=== PATIENT | male | born 1950 | race Caucasian/White ===

== ENCOUNTER → 2017-03-22 | Outpatient (REF) | payer OTHER ==
[2017-03-23 12:15] LABS: ANION GAP 7 MEQ/L (8-16); BLOOD UREA NITROGEN 21 MG/DL (7-18); CALCIUM LEVEL 8.8 MG/DL (8.8-10.2); CARBON DIOXIDE LEVEL 28 MEQ/L (21-32); CHLORIDE LEVEL 107 MEQ/L (98-107); CREATININE FOR GFR 1.18 MG/DL (0.70-1.30); GLOMERULAR FILTRATION RATE > 60.0 (>49); GLUCOSE, FASTING 88 MG/DL (80-110); POTASSIUM SERUM 4.3 MEQ/L (3.5-5.1); SODIUM LEVEL 142 MEQ/L (136-145)
== END ==
LOC: M SFHCCLAY 15:19
PROVIDERS: ATTEND Family Medicine
DX: I10 Essential (primary) hypertension (principal)
CPT/HCPCS: 80048; G0463

== ENCOUNTER → 2017-09-03 | Outpatient (REF) | payer OTHER ==
[2017-09-04 11:40] LABS: BASO # 0.1 10^3/uL (0.0-0.2); BASO % 0.7 % (0.0-1.0); EOS # 0.2 10^3/uL (0.0-0.50); EOS % 1.6 % (0.0-3.0); IMMATURE GRANULOCYTE % 0.5 % (0-3.0); LYMPH # 3.3 10^3/uL (1.5-4.5); LYMPH % 31.1 % (24.0-44.0); MEAN CORPUSCULAR HGB CONC 33.3 g/dl (32.0-36.5); MEAN CORPUSCULAR VOLUME 89.9 fl (80.0-96.0); NEUTROPHILS # 6.1 10^3/uL (1.8-7.7); NEUTROPHILS % 57.1 % (36.0-66.0); PLATELET COUNT, AUTOMATED 360 10^3/uL (150-450); RED BLOOD COUNT 5.34 10^6/uL (4.30-6.10); RED CELL DISTRIBUTION WIDTH 13.3 % (11.5-14.5); WHITE BLOOD COUNT 10.7 10^3/uL (4.0-10.0)
[2017-09-04 12:02] LABS: TOTAL T3 84.3 NG/DL (60.0-181.0)
[2017-09-04 12:08] LABS: ALBUMIN 4.1 GM/DL (3.2-5.2); ALBUMIN/GLOBULIN RATIO 1.37 (1.00-1.93); ALKALINE PHOSPHATASE 99 U/L (45-117); ALT/SGPT 38 U/L (12-78); ANION GAP 6 MEQ/L (8-16); AST/SGOT 18 U/L (7-37); BILIRUBIN,TOTAL 0.4 MG/DL (0.2-1.0); BLOOD UREA NITROGEN 28 MG/DL (7-18); CARBON DIOXIDE LEVEL 32 MEQ/L (21-32); CHLORIDE LEVEL 103 MEQ/L (98-107); CREATININE FOR GFR 1.21 MG/DL (0.70-1.30); GLOMERULAR FILTRATION RATE > 60.0 (>49); GLUCOSE, FASTING 87 MG/DL (70-100); POTASSIUM SERUM 4.5 MEQ/L (3.5-5.1); SODIUM LEVEL 141 MEQ/L (136-145); THYROXINE (T4) 8.4 UG/DL (4.5-12.0); TOTAL PROTEIN 7.1 GM/DL (6.4-8.2)
== END ==
LOC: M SFHCCLAY 15:44
DX: R00.1 Bradycardia, unspecified (principal); R94.31 Abnormal electrocardiogram [ECG] [EKG]; I10 Essential (primary) hypertension; I73.9 Peripheral vascular disease, unspecified
CPT/HCPCS: 84443

== ENCOUNTER → 2018-04-26 | Outpatient (CLI) | payer OTHER | LOC: M RAD 07:47 | DX: I10 Essential (primary) hypertension (principal); N13.30 Unspecified hydronephrosis; I70.1 Atherosclerosis of renal artery; N40.0 Benign prostatic hyperplasia without lower urinary tract symptoms | CPT/HCPCS: 76775 ==

== ENCOUNTER → 2018-06-04 | Outpatient (REF) | payer OTHER ==
[2018-06-05 11:48] LABS: ALBUMIN 3.9 GM/DL (3.2-5.2); BILIRUBIN,TOTAL 0.4 MG/DL (0.2-1.0); CALCIUM LEVEL 9.3 MG/DL (8.8-10.2); CREATININE FOR GFR 1.27 MG/DL (0.70-1.30); POTASSIUM SERUM 4.9 MEQ/L (3.5-5.1); TOTAL PROTEIN 7.1 GM/DL (6.4-8.2)
== END ==
LOC: M SFHCCLAY 15:48
PROVIDERS: ATTEND Family Medicine
DX: I10 Essential (primary) hypertension (principal)
CPT/HCPCS: 80053; G0463

== ENCOUNTER → 2018-07-02 | Outpatient (REF) | payer OTHER ==
[2018-07-02 16:38] LABS: BASO # 0.1 10^3/uL (0.0-0.2); BASO % 0.7 % (0.0-1.0); EOS # 0.1 10^3/uL (0.0-0.50); EOS % 1.3 % (0.0-3.0); HEMATOCRIT 45.8 % (42.0-52.0); HEMOGLOBIN 15.2 g/dl (13.5-17.5); LYMPH # 3.5 10^3/uL (1.5-4.5); MEAN CORPUSCULAR HEMOGLOBIN 30.2 pg (27.0-33.0); MEAN CORPUSCULAR HGB CONC 33.2 g/dl (32.0-36.5); MEAN CORPUSCULAR VOLUME 91.1 fl (80.0-96.0); MONO # 1.1 10^3/uL (0.0-0.8); MONO % 9.9 % (0.0-5.0); NEUTROPHILS # 5.9 10^3/uL (1.8-7.7); NEUTROPHILS % 54.8 % (36.0-66.0); PLATELET COUNT, AUTOMATED 340 10^3/uL (150-450); RED BLOOD COUNT 5.03 10^6/uL (4.30-6.10); WHITE BLOOD COUNT 10.7 10^3/uL (4.0-10.0)
[2018-07-02 16:43] LABS: INR 0.93; PROTHROMBIN TIME 12.6 SECONDS (12.1-14.4)
[2018-07-02 16:44] LABS: PARTIAL THROMBOPLASTIN TIME 30.4 SECONDS (25.4-37.6)
[2018-07-02 16:54] LABS: BLOOD UREA NITROGEN 18 MG/DL (7-18); CALCIUM LEVEL 8.6 MG/DL (8.8-10.2); CARBON DIOXIDE LEVEL 28 MEQ/L (21-32); CHLORIDE LEVEL 104 MEQ/L (98-107); CREATININE FOR GFR 1.21 MG/DL (0.70-1.30); GLOMERULAR FILTRATION RATE > 60.0 (>49); GLUCOSE, FASTING 83 MG/DL (70-100); POTASSIUM SERUM 5.1 MEQ/L (3.5-5.1); SODIUM LEVEL 138 MEQ/L (136-145)
== END ==
LOC: M LABDRAWC 16:20
PROVIDERS: ATTEND Surgery Vascular Surgery
DX: Z01.818 Encounter for other preprocedural examination (principal); D69.8 Other specified hemorrhagic conditions; I73.9 Peripheral vascular disease, unspecified

== ENCOUNTER → 2019-05-06 | Outpatient (REF) | payer MEDICARE ==
[2019-05-07 11:24] LABS: BASO # 0.1 10^3/uL (0.0-0.2); BASO % 0.8 % (0.0-1.0); EOS # 0.2 10^3/uL (0.0-0.5); EOS % 2.7 % (0.0-3.0); HEMATOCRIT 46.9 % (42.0-52.0); HEMOGLOBIN 15.6 g/dl (13.5-17.5); LYMPH # 3.2 10^3/uL (1.5-5.0); LYMPH % 35.3 % (24.0-44.0); MEAN CORPUSCULAR HEMOGLOBIN 30.6 pg (27.0-33.0); MEAN CORPUSCULAR HGB CONC 33.3 g/dl (32.0-36.5); MONO # 0.9 10^3/uL (0.0-0.8); MONO % 10.1 % (0.0-5.0); NEUTROPHILS # 4.6 10^3/uL (1.5-8.5); NEUTROPHILS % 50.9 % (36.0-66.0); PLATELET COUNT, AUTOMATED 337 10^3/uL (150-450)
[2019-05-07 11:31] LABS: ALBUMIN 3.9 GM/DL (3.2-5.2); ALT/SGPT 51 U/L (12-78); BILIRUBIN,TOTAL 0.4 MG/DL (0.2-1.0); BLOOD UREA NITROGEN 20 MG/DL (7-18); CALCIUM LEVEL 9.6 MG/DL (8.8-10.2); CARBON DIOXIDE LEVEL 30 MEQ/L (21-32); CHLORIDE LEVEL 105 MEQ/L (98-107); CREATININE FOR GFR 1.13 MG/DL (0.70-1.30); GLOMERULAR FILTRATION RATE > 60.0 (>49); GLUCOSE, FASTING 99 MG/DL (70-100); POTASSIUM SERUM 4.9 MEQ/L (3.5-5.1); SODIUM LEVEL 142 MEQ/L (136-145); TOTAL PROTEIN 6.7 GM/DL (6.4-8.2)
[2019-05-10 00:16] LABS: Lyme Disease IgG Ab 18 kDa Ban Absent (.); Lyme Disease IgG Ab 23 kDa Ban Absent (.); Lyme Disease IgG Ab 28 kDa Ban Absent (.); Lyme Disease IgG Ab 30 kDa Ban Absent (.); Lyme Disease IgG Ab 39 kDa Ban Absent (.); Lyme Disease IgG Ab 41 kDa Ban Absent (.); Lyme Disease IgG Ab 45 kDa Ban Absent (.); Lyme Disease IgG Ab 58 kDa Ban Absent (.); Lyme Disease IgG Ab 66 kDa Ban Absent (.); Lyme Disease IgG Ab 93 kDa Ban Absent (.); Lyme Disease IgG West Blot Int Negative (.); Lyme Disease IgG/IgM Antibodie <0.91 ISR (0.00-0.90); Lyme Disease IgM Ab 23 kDa Ban Absent (.); Lyme Disease IgM Ab 39 kDa Ban Absent (.); Lyme Disease IgM Ab 41 kDa Ban Absent (.); Lyme Disease IgM Ab Quantitati 1.16 index (0.00-0.79); Lyme Disease IgM West Blot Int Negative (.)
== END ==
LOC: M SFHCCLAY 14:52
PROVIDERS: ATTEND Family Medicine
DX: I10 Essential (primary) hypertension (principal); W57.XXXD Bitten or stung by nonvenomous insect and other nonvenomous arthropods, subsequent encounter; Z23 Encounter for immunization
CPT/HCPCS: 80053; 85025; 86617; 90682; G0008; G0463

== ENCOUNTER → 2021-03-07 | Outpatient (CLI) | payer MEDICARE ==
--- NOTE | 2021-03-07 12:37 | REP ---
INDICATION: RT SHOULDER PAIN COMPARISON: None. TECHNIQUE: Three views right shoulder. 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 There is also moderate spurring of the inferior aspect of the humeral head. A 2 cm calcific body projects just inferior to the glenohumeral joint. There appear to be mild tendinous calcifications along the superolateral humeral head. IMPRESSION: No fracture or dislocation. Degenerative changes as discussed above. A 2 cm calcific body projects just inferior to the glenohumeral joint and there are mild tendinous calcifications supero laterally. <Electronically signed by Alejandro Rasheed > 03/07/21 7833
== END ==
LOC: M CLY 11:39
PROVIDERS: ATTEND Family Medicine
DX: M19.011 Primary osteoarthritis, right shoulder (principal); M25.511 Pain in right shoulder; I10 Essential (primary) hypertension; F43.23 Adjustment disorder with mixed anxiety and depressed mood
CPT/HCPCS: 73030; G0463

== ENCOUNTER → 2023-08-21 | Outpatient (REF) | payer MEDICARE ==
[2023-08-21 17:29] LABS: BASO # 0.1 10^3/uL (0.0-0.2); BASO % 0.9 % (0.0-1.0); EOS # 0.2 10^3/uL (0.0-0.5); EOS % 2.2 % (0.0-3.0); HEMATOCRIT 46.3 % (42.0-52.0); HEMOGLOBIN 15.1 g/dl (13.5-17.5); LYMPH # 2.3 10^3/uL (1.5-5.0); LYMPH % 26.7 % (24.0-44.0); MEAN CORPUSCULAR HEMOGLOBIN 29.5 pg (27.0-33.0); MEAN CORPUSCULAR HGB CONC 32.6 g/dl (32.0-36.5); MEAN CORPUSCULAR VOLUME 90.6 fl (80.0-96.0); MONO # 0.9 10^3/uL (0.0-0.8); MONO % 10.1 % (2.0-8.0); NEUTROPHILS # 5.2 10^3/uL (1.5-8.5); NEUTROPHILS % 59.4 % (36.0-66.0); PLATELET COUNT, AUTOMATED 396 10^3/uL (150-450); RED BLOOD COUNT 5.11 10^6/uL (4.30-6.10); WHITE BLOOD COUNT 8.8 10^3/uL (4.0-10.0)
[2023-08-21 17:54] LABS: ALBUMIN 3.4 G/DL (3.2-5.2); ALKALINE PHOSPHATASE 126 U/L (46-116); ALT/SGPT 33 U/L (7.0-40); AST/SGOT 21 U/L (<34); BILIRUBIN,TOTAL 0.5 MG/DL (0.3-1.2); BLOOD UREA NITROGEN 19 MG/DL (9-23); CALCIUM LEVEL 8.2 MG/DL (8.3-10.6); CARBON DIOXIDE LEVEL 29 MMOL/L (20-31); CHLORIDE LEVEL 103 MMOL/L (98-107); CREATININE FOR GFR 0.98 MG/DL (0.70-1.30); GLOMERULAR FILTRATION RATE > 60.0 (>42); GLUCOSE, FASTING 93 MG/DL (74-106); POTASSIUM SERUM 5.1 MMOL/L (3.5-5.1); SODIUM LEVEL 140 MMOL/L (136-145); TOTAL PROTEIN 6.4 G/DL (5.7-8.2)
[2023-08-21 18:02] LABS: THYROID STIMULATING HORMONE 2.029 uIU/ML (0.55-4.78)
[2023-08-21 18:03] LABS: FREE T4 0.95 NG/DL (0.89-1.76)
== END ==
LOC: M SFHCCLAY 12:10
PROVIDERS: ATTEND Family Medicine
DX: R22.0 Localized swelling, mass and lump, head (principal); I10 Essential (primary) hypertension

== ENCOUNTER → 2023-09-18 | Outpatient (CLI) | payer MEDICARE ==
[~2023-09-18] MED LIST: ISOVUE-370 76% 100ML VIAL As Ordered ONE
== END ==
LOC: M RAD 10:35
PROVIDERS: ATTEND Orthopaedic Surgery
DX: M25.511 Pain in right shoulder (principal); I82.C11 Acute embolism and thrombosis of right internal jugular vein
CPT/HCPCS: 93971; Q9967

== ENCOUNTER → 2023-09-18 | Outpatient (CLI) | payer MEDICARE | LOC: M RAD 10:45 | PROVIDERS: ATTEND Family Medicine | DX: R06.02 Shortness of breath (principal); I10 Essential (primary) hypertension; R59.0 Localized enlarged lymph nodes; D49.1 Neoplasm of unspecified behavior of respiratory system; J90 Pleural effusion, not elsewhere classified; M25.511 Pain in right shoulder; I82.C11 Acute embolism and thrombosis of right internal jugular vein | CPT/HCPCS: 71260; 93971; Q9967 ==

== ENCOUNTER → 2023-09-25 | Outpatient (CLI) | payer MEDICARE ==
[~2023-09-25] MED LIST changes: +ASPI81TA26 PO; +CLONI1TA PO; +ENOX100I3 SC; +ETOD-235 PO; +FURO40TA2 PO; -ISOVUE-370 76% 100ML VIAL As Ordered ONE; +MELO15TA28 PO; +MULT-40 PO; +SILD100T PO; +WARF-23 PO
== END ==
LOC: M IRPRO 10:47
PROVIDERS: ATTEND Internal Medicine Pulmonary Disease
DX: R91.1 Solitary pulmonary nodule (principal); Z53.9 Procedure and treatment not carried out, unspecified reason

== ENCOUNTER → 2023-09-26 | Outpatient (CLI) | payer MEDICARE ==
[~2023-09-26] MED LIST changes: +HOME MED LIST COMPLETE! XX SCH; +LIDOCAINE 1% MDV 20ML VIAL As Ordered ONE
[2023-09-26 08:40] VITALS: TEMP 97.2
[2023-09-26 09:24] LABS: PLATELET COUNT, AUTOMATED 492 10^3/uL (150-450)
[2023-09-26 09:35] LABS: INR 0.97; PARTIAL THROMBOPLASTIN TIME 32.2 SECONDS (24.8-34.2); PROTHROMBIN TIME 12.6 SECONDS (12.5-14.5)
[2023-09-26 11:30] VITALS: BP 180/70
[2023-09-26 12:00] VITALS: O2SAT 93
== END ==
LOC: M IRPRO 08:35
PROVIDERS: ATTEND Internal Medicine Pulmonary Disease
DX: R91.8 Other nonspecific abnormal finding of lung field (principal); C85.10 Unspecified B-cell lymphoma, unspecified site; Z79.01 Long term (current) use of anticoagulants

== ENCOUNTER 2023-10-05 18:14 | Emergency (ER) | payer MEDICARE ==
[~2023-10-05] VITALS: Ht 177.8 cm; Wt 90.2 kg
[~2023-10-05 18:14] MED LIST changes: -HOME MED LIST COMPLETE! XX SCH; -LIDOCAINE 1% MDV 20ML VIAL As Ordered ONE
[2023-10-05] MEDS: NS 1,000 ML IV ONE (19:20)
[2023-10-05 19:30] LABS: BASO # 0.1 10^3/uL (0.0-0.2); BASO % 0.8 % (0.0-1.0); EOS # 0.2 10^3/uL (0.0-0.5); EOS % 2.3 % (0.0-3.0); HEMATOCRIT 41.8 % (42.0-52.0); HEMOGLOBIN 13.7 g/dl (13.5-17.5); LYMPH # 1.9 10^3/uL (1.5-5.0); LYMPH % 23.1 % (24.0-44.0); MEAN CORPUSCULAR HEMOGLOBIN 29.2 pg (27.0-33.0); MEAN CORPUSCULAR HGB CONC 32.8 g/dl (32.0-36.5); MEAN CORPUSCULAR VOLUME 89.1 fl (80.0-96.0); MONO # 0.9 10^3/uL (0.0-0.8); MONO % 10.4 % (2.0-8.0); NEUTROPHILS # 5.3 10^3/uL (1.5-8.5); NEUTROPHILS % 62.8 % (36.0-66.0); PLATELET COUNT, AUTOMATED 473 10^3/uL (150-450); RED BLOOD COUNT 4.69 10^6/uL (4.30-6.10); WHITE BLOOD COUNT 8.4 10^3/uL (4.0-10.0)
[2023-10-05] MEDS: PANTOPRAZOLE 40MG VIAL IV ONE (19:34)
[2023-10-05] MEDS: MAALOX 30 ML SUSP *UDC PO ONE (19:34)
[2023-10-05 19:36] VITALS: BP 154/68
[2023-10-05] MEDS: NITROGLYCERIN 2% OINT 1 GM *U/D* PKT TOP ONE (19:36)
[2023-10-05 19:41] LABS: INR 1.44
[2023-10-05 19:53] LABS: LIPASE 23 U/L (12-53)
[2023-10-05 19:56] LABS: ALBUMIN 3.2 G/DL (3.2-5.2); ALKALINE PHOSPHATASE 121 U/L (46-116); ALT/SGPT 52 U/L (7.0-40); AST/SGOT 18 U/L (<34); BILIRUBIN,DIRECT < 0.1 MG/DL (<0.4); BILIRUBIN,TOTAL 0.3 MG/DL (0.3-1.2); BLOOD UREA NITROGEN 23 MG/DL (9-23); CALCIUM LEVEL 9.1 MG/DL (8.3-10.6); CARBON DIOXIDE LEVEL 28 MMOL/L (20-31); CHLORIDE LEVEL 101 MMOL/L (98-107); CK-MB VALUE MASS 2.8 NG/ML (<3.6); CREATININE FOR GFR 0.97 MG/DL (0.70-1.30); GLOMERULAR FILTRATION RATE > 60.0 (>42); GLUCOSE, FASTING 95 MG/DL (74-106); POTASSIUM SERUM 4.7 MMOL/L (3.5-5.1); SODIUM LEVEL 135 MMOL/L (136-145); TOTAL PROTEIN 6.4 G/DL (5.7-8.2)
[2023-10-05 19:57] LABS: FREE T4 0.96 NG/DL (0.89-1.76)
[2023-10-05] MEDS ORDERED: ISOVUE-370 76% 100ML VIAL As Ordered ONE (19:57)
[2023-10-05 19:58] LABS: THYROID STIMULATING HORMONE 3.234 uIU/ML (0.55-4.78)
[2023-10-05 19:59] LABS: CPK CREATINE PHOSPHOKINASE 120 U/L (46-171); MB/CK RELATIVE INDEX 2.33 (< OR =4)
[2023-10-05 21:40] LABS: MB/CK RELATIVE INDEX 2.27 (< OR =4)
[2023-10-05 21:46] LABS: PROCALCITONIN 0.04 ng/ml
[2023-10-05] MEDS ORDERED: MULTTAB61 PO (21:49)
[2023-10-05] MEDS: MORPHINE 4 MG/ML 1ML VIAL IV ONE (21:50)
[2023-10-05] MEDS ORDERED: HOME MED LIST COMPLETE! XX SCH (21:55)
[2023-10-05 22:30] VITALS: BP 128/59; TEMP 98.2; O2SAT 91
[2023-10-05] MEDS ORDERED: OXYC1TAB23 PO (22:34)
[2023-10-08] MEDS ORDERED: ETOD-235 PO (09:22)
[2023-10-08] MEDS ORDERED: PRED50TA PO (12:44)
[2023-10-08] MEDS ORDERED: OLAN1TAB16 PO (13:09)
== END 2023-10-05 23:30 | disposition home or self-care (01) ==
LOC: M ED 18:14
DX: R07.89 Other chest pain (principal); C85.12 Unspecified B-cell lymphoma, intrathoracic lymph nodes; I10 Essential (primary) hypertension; Z95.820 Peripheral vascular angioplasty status with implants and grafts; Z86.718 Personal history of other venous thrombosis and embolism; F17.290 Nicotine dependence, other tobacco product, uncomplicated; Z79.01 Long term (current) use of anticoagulants; Z79.82 Long term (current) use of aspirin; Z79.899 Other long term (current) drug therapy
CPT/HCPCS: 71045; 71275; 80048; 80076; 82550; 82553; 83690; 83880; 84145; 84439; 84443; 84484; 85025; 85610; 86140; 93005; 93041; 94760; 96361; 96374; 96375; 99291; C9113; Q9967

== ENCOUNTER → 2023-10-08 | Outpatient (CLI) | payer MEDICARE ==
[~2023-10-08] MED LIST changes: +ALLO300T2 PO; +AMOX875T2 PO; +ELIQ5TAB PO; +HALO0.052 TOP; +HYDR-3715 PO; +KRIL1000 PO; +LIDO15SO8 PO; +MAGICMW SSP; +MEGE40SU6 PO; +MULTTAB61 PO; +OLAN1TAB16 PO; +OXYC1TAB23 PO; +PRED50TA PO
== END ==
LOC: M ONCR 08:53
PROVIDERS: ATTEND General Practice
DX: C85.12 Unspecified B-cell lymphoma, intrathoracic lymph nodes (principal); R07.9 Chest pain, unspecified; R60.0 Localized edema; R61 Generalized hyperhidrosis; Z71.2 Person consulting for explanation of examination or test findings; Z79.01 Long term (current) use of anticoagulants; Z79.82 Long term (current) use of aspirin; Z79.899 Other long term (current) drug therapy; Z80.8 Family history of malignant neoplasm of other organs or systems; Z87.891 Personal history of nicotine dependence

== ENCOUNTER → 2023-10-15 | Outpatient (CLI) | payer MEDICARE ==
[~2023-10-15] MED LIST changes: -AMOX875T2 PO; -HALO0.052 TOP; -HYDR-3715 PO; -KRIL1000 PO; -LIDO15SO8 PO; -MAGICMW SSP; -MEGE40SU6 PO
== END ==
LOC: M IRPRO 09:21
PROVIDERS: ATTEND Internal Medicine Hematology & Oncology
DX: C85.12 Unspecified B-cell lymphoma, intrathoracic lymph nodes (principal)

== ENCOUNTER → 2023-10-16 | Outpatient (CLI) | payer MEDICARE | LOC: M CARPUL 09:46 | PROVIDERS: ATTEND Internal Medicine Pulmonary Disease | DX: R91.8 Other nonspecific abnormal finding of lung field (principal) ==

== ENCOUNTER → 2023-10-16 | Outpatient (RCR) | payer MEDICARE | LOC: M ONCR 10-08 12:03 | PROVIDERS: ATTEND General Practice | DX: Z51.0 Encounter for antineoplastic radiation therapy (principal); C85.12 Unspecified B-cell lymphoma, intrathoracic lymph nodes ==

== ENCOUNTER → 2023-10-16 | Outpatient (CLI) | payer MEDICARE ==
[~2023-10-16] MED LIST changes: +AMOX875T2 PO; +HALO0.052 TOP; +HYDR-3715 PO; +KRIL1000 PO; +LIDO15SO8 PO; +MAGICMW SSP; +MEGE40SU6 PO
== END ==
LOC: M CARPUL 09:48
PROVIDERS: ATTEND Internal Medicine Hematology & Oncology
DX: C83.30 Diffuse large B-cell lymphoma, unspecified site (principal); Z79.69 Long term (current) use of other immunomodulators and immunosuppressants; I08.3 Combined rheumatic disorders of mitral, aortic and tricuspid valves; R91.8 Other nonspecific abnormal finding of lung field

== ENCOUNTER 2023-10-17 10:06 | Outpatient (RCR) | payer MEDICARE ==
[~2023-10-17 10:06] MED LIST changes: -AMOX875T2 PO; -HALO0.052 TOP; -HYDR-3715 PO; -KRIL1000 PO; -LIDO15SO8 PO; -MAGICMW SSP; -MEGE40SU6 PO
[2023-10-25] MEDS ORDERED: MAGICMW SSP (08:17)
[2023-10-25] MEDS ORDERED: AMOX875T2 PO (09:11)
[2023-10-25] MEDS ORDERED: HYDR-3715 PO (09:25)
[2023-10-26] MEDS ORDERED: LIDO15SO8 PO (08:04)
[2023-11-07] MEDS ORDERED: HALO0.052 TOP (10:33)
[2023-11-07] MEDS ORDERED: PRED50TA PO (10:57)
[2023-11-08] MEDS ORDERED: KRIL1000 PO (11:12)
== END 2023-11-16 ==
LOC: M ONCR 10:06
PROVIDERS: ATTEND General Practice
DX: C85.12 Unspecified B-cell lymphoma, intrathoracic lymph nodes (principal)

== ENCOUNTER → 2023-11-15 | Outpatient (CLI) | payer MEDICARE ==
[~2023-11-15] MED LIST changes: +AMOX875T2 PO; +HALO0.052 TOP; +HYDR-3715 PO; +KRIL1000 PO; +LIDO15SO8 PO; +LIDOCAINE 1% MDV 20ML VIAL As Ordered ONE; +LIDOCAINE W/EPINEPHRINE 1% 20ML VIAL As Ordered ONE; +MAGICMW SSP; +MIDAZOLAM INJ 2MG/2ML VIAL As Ordered ONE; +ONDANSETRON 4MG 2ML VIAL As Ordered ONE; +ceFAZolin 2 GM/D5W 50 ML IV BAG As Ordered ONE; +fentaNYL 100 MCG/2 ML INJECTION As Ordered ONE
[2023-11-15 13:32] VITALS: TEMP 97.8
[2023-11-15 17:44] VITALS: BP 165/77; O2SAT 91
== END ==
LOC: M IRPRO 13:17
PROVIDERS: ATTEND Internal Medicine Hematology & Oncology
DX: C34.90 Malignant neoplasm of unspecified part of unspecified bronchus or lung (principal)
CPT/HCPCS: 36561; 99152; 99153; J0690; J2250; J2405; J3010

== ENCOUNTER → 2023-11-27 | Outpatient (CLI) | payer MEDICARE ==
[~2023-11-27] MED LIST changes: +GASTROGRAFIN SOLUTION 30ML As Ordered ONE; +ISOVUE-370 76% 100ML VIAL As Ordered ONE; -LIDOCAINE 1% MDV 20ML VIAL As Ordered ONE; -LIDOCAINE W/EPINEPHRINE 1% 20ML VIAL As Ordered ONE; -MIDAZOLAM INJ 2MG/2ML VIAL As Ordered ONE; -ONDANSETRON 4MG 2ML VIAL As Ordered ONE; -ceFAZolin 2 GM/D5W 50 ML IV BAG As Ordered ONE; -fentaNYL 100 MCG/2 ML INJECTION As Ordered ONE
== END ==
LOC: M RAD 09:43
PROVIDERS: ATTEND Internal Medicine Hematology & Oncology
DX: C83.38 Diffuse large B-cell lymphoma, lymph nodes of multiple sites (principal); K76.0 Fatty (change of) liver, not elsewhere classified; E27.9 Disorder of adrenal gland, unspecified
CPT/HCPCS: 70491; 71260; 74177; Q9963; Q9967

== ENCOUNTER → 2024-01-01 | Outpatient (CLI) | payer MEDICARE ==
[~2024-01-01] MED LIST changes: -GASTROGRAFIN SOLUTION 30ML As Ordered ONE; +MEGE40SU6 PO
== END ==
LOC: M RAD 09:14
PROVIDERS: ATTEND Internal Medicine Hematology & Oncology
DX: C83.32 Diffuse large B-cell lymphoma, intrathoracic lymph nodes (principal)
CPT/HCPCS: 70491; 71260; Q9967

== ENCOUNTER → 2024-01-30 | Outpatient (CLI) | payer MEDICARE ==
[~2024-01-30] MED LIST changes: -ISOVUE-370 76% 100ML VIAL As Ordered ONE
== END ==
LOC: M ONCR 09:13
PROVIDERS: ATTEND General Practice
DX: C83.30 Diffuse large B-cell lymphoma, unspecified site (principal); I87.1 Compression of vein; J70.0 Acute pulmonary manifestations due to radiation; Z92.3 Personal history of irradiation; Z79.01 Long term (current) use of anticoagulants; Z79.52 Long term (current) use of systemic steroids; Z79.82 Long term (current) use of aspirin; Z79.899 Other long term (current) drug therapy; Z87.891 Personal history of nicotine dependence; Z92.21 Personal history of antineoplastic chemotherapy; W88.8XXA Exposure to other ionizing radiation, initial encounter

== ENCOUNTER → 2024-02-11 | Outpatient (CLI) | payer MEDICARE | LOC: M PLARAD 08:32 | PROVIDERS: ATTEND Internal Medicine Hematology & Oncology | DX: C83.31 Diffuse large B-cell lymphoma, lymph nodes of head, face, and neck (principal) | CPT/HCPCS: 78815; A9552 ==

== ENCOUNTER → 2024-02-19 | Outpatient (CLI) | payer MEDICARE | LOC: M ONCR 10:11 | PROVIDERS: ATTEND General Practice | DX: C85.12 Unspecified B-cell lymphoma, intrathoracic lymph nodes (principal); Z87.891 Personal history of nicotine dependence; Z79.52 Long term (current) use of systemic steroids; Z79.82 Long term (current) use of aspirin; Z79.02 Long term (current) use of antithrombotics/antiplatelets; Z79.899 Other long term (current) drug therapy; Z92.21 Personal history of antineoplastic chemotherapy; Z92.3 Personal history of irradiation ==

== ENCOUNTER → 2024-05-07 | Outpatient (CLI) | payer MEDICARE ==
[~2024-05-07] MED LIST changes: -HALO0.052 TOP; +HALO0.056 TOP
== END ==
LOC: M EKG 14:12
PROVIDERS: ATTEND Internal Medicine Cardiovascular Disease
DX: I49.1 Atrial premature depolarization (principal); I48.0 Paroxysmal atrial fibrillation

== ENCOUNTER → 2024-05-08 | Outpatient (CLI) | payer MEDICARE | LOC: M CARPUL 12:55 | PROVIDERS: ATTEND Internal Medicine Cardiovascular Disease | DX: R94.31 Abnormal electrocardiogram [ECG] [EKG] (principal); I47.19 Other supraventricular tachycardia ==

== ENCOUNTER 2024-06-12 09:12 | Inpatient (IN) | payer MEDICARE ==
[~2024-06-12] VITALS: Ht 177.8 cm; Wt 86.9 kg
[2024-06-12] MEDS: CARVedilol 6.25 MG TAB PO ONE ×2 (10:17→15:26)
[2024-06-12 10:20] LABS: VENOUS BASE EXCESS 1.2 (-2.0-2.0); VENOUS O2 SATURATION 72.1 % (60.0-80.0); VENOUS PARTIAL PRESSURE CO2 47.3 mmHg (38.0-50.0); VENOUS PH 7.375 UNITS (7.330-7.430); VENOUS STANDARD HCO3 24.8 MMOL/L; VENOUS TOTAL CO2 28.5 MMOL/L (24.0-28.0)
[2024-06-12 10:29] LABS: BASO # 0.1 10^3/uL (0.0-0.2); BASO % 0.5 % (0.0-1.0); EOS # 0.1 10^3/uL (0.0-0.5); EOS % 1.2 % (0.0-3.0); HEMATOCRIT 44.5 % (42.0-52.0); HEMOGLOBIN 14.5 g/dl (13.5-17.5); LYMPH # 0.8 10^3/uL (1.5-5.0); LYMPH % 8.1 % (24.0-44.0); MEAN CORPUSCULAR HEMOGLOBIN 28.6 pg (27.0-33.0); MEAN CORPUSCULAR HGB CONC 32.6 g/dl (32.0-36.5); MEAN CORPUSCULAR VOLUME 87.8 fl (80.0-96.0); MONO % 10.2 % (2.0-8.0); NEUTROPHILS # 7.9 10^3/uL (1.5-8.5); NEUTROPHILS % 79.7 % (36.0-66.0); PLATELET COUNT, AUTOMATED 357 10^3/uL (150-450); RED BLOOD COUNT 5.07 10^6/uL (4.30-6.10); WHITE BLOOD COUNT 9.9 10^3/uL (4.0-10.0)
[2024-06-12] MEDS ORDERED: LEVO1TAB39 PO (10:50)
[2024-06-12] MEDS ORDERED: ELIQ5TAB PO (10:50)
[2024-06-12] MEDS ORDERED: CARV6.25 PO (10:50)
[2024-06-12] MEDS ORDERED: ROSU5TAB49 PO (10:50)
[2024-06-12] MEDS ORDERED: HOME MED LIST COMPLETE! XX SCH (10:55)
[2024-06-12 10:56] LABS: ALBUMIN 3.7 G/DL (3.2-5.2); ALKALINE PHOSPHATASE 119 U/L (40-129); ALT/SGPT 40 U/L (7.0-40); AST/SGOT 15 U/L (<34); BILIRUBIN,DIRECT 0.2 MG/DL (<0.4); BILIRUBIN,TOTAL 0.7 MG/DL (0.3-1.2); BLOOD UREA NITROGEN 20 MG/DL (9-23); CALCIUM LEVEL 9.3 MG/DL (8.3-10.6); CARBON DIOXIDE LEVEL 29 MMOL/L (20-31); CHLORIDE LEVEL 104 MMOL/L (98-107); CREATININE FOR GFR 1.02 MG/DL (0.70-1.30); GLOMERULAR FILTRATION RATE > 60.0 (>42); GLUCOSE, FASTING 115 MG/DL (74-106); POTASSIUM SERUM 4.5 MMOL/L (3.5-5.1); SODIUM LEVEL 140 MMOL/L (136-145); TOTAL PROTEIN 5.9 G/DL (5.7-8.2)
[2024-06-12 10:58] LABS: THYROID STIMULATING HORMONE 3.581 uIU/ML (0.55-4.78)
[2024-06-12] MEDS ORDERED: ISOVUE-370 76% 100ML VIAL As Ordered ONE (11:37)
[2024-06-12] MEDS: DIGOXIN INJ 0.5 MG/2 ML AMP IV STA (14:04)
[2024-06-12] MEDS: FUROSEMIDE 40MG/4ML VIAL IV ONE (14:04)
[2024-06-12] MEDS ORDERED: MOM 30ML SUSPENSION UDC PO PRN (14:55)
[2024-06-12] MEDS ORDERED: PILL CUTTER 1 EACH XX PRN (15:10)
[2024-06-12 15:26] LABS: LDH LACTATE DEHYDROGENASE 194 U/L (120-246); MAGNESIUM LEVEL 1.9 MG/DL (1.8-2.4)
[2024-06-12 15:52] VITALS: BP 158/100; TEMP 97.7; O2SAT 95
[2024-06-12] MEDS: MULTIVITAMINS/MINERALS THERAP 1 TAB PO SCH (16:25)
[2024-06-12] MEDS: ASPIRIN 81MG ENTERIC TABLET PO SCH (16:25)
[2024-06-12] MEDS: ROSUVASTATIN 10 MG TAB (CRESTOR) PO SCH (16:25)
[2024-06-12] MEDS: MAG SULF 1GM/100ML (MAG RUN) 1 GM in IV 1 EA IV SCH (16:26)
[2024-06-12 16:37] LABS: HEMOGLOBIN A1c 5.8 % (4.0-6.0)
[2024-06-12 19:40] VITALS: BP 142/71; TEMP 97.9; O2SAT 92
[2024-06-12] MEDS ORDERED: CARVedilol 12.5 MG TAB PO SCH (21:00)
[2024-06-12] MEDS: FUROSEMIDE 40MG/4ML VIAL IV SCH (21:25)
[2024-06-12] MEDS: APIXABAN 5 MG TAB (ELIQUIS) PO SCH (21:26)
[2024-06-12 21:27] VITALS: BP 142/71
[2024-06-12] MEDS: CARVedilol 6.25 MG TAB PO SCH (21:27)
[2024-06-12] MEDS: DOCUSATE SODIUM 100MG CAPSULE PO SCH (21:27)
[2024-06-12 23:56] VITALS: BP 122/74; TEMP 97; O2SAT 93
[2024-06-13] VITALS (7 sets, daily range): BP systolic 121–140; BP diastolic 68–92; TEMP 96.7–97.7; O2SAT 84–96
[2024-06-13] MEDS: ACETAMINOPHEN 325 MG TAB PO PRN (02:20)
[2024-06-13 06:25] LABS: HEMATOCRIT 45.9 % (42.0-52.0); HEMOGLOBIN 14.8 g/dl (13.5-17.5); MEAN CORPUSCULAR HEMOGLOBIN 28.4 pg (27.0-33.0); MEAN CORPUSCULAR HGB CONC 32.2 g/dl (32.0-36.5); MEAN CORPUSCULAR VOLUME 88.1 fl (80.0-96.0); PLATELET COUNT, AUTOMATED 350 10^3/uL (150-450); RED BLOOD COUNT 5.21 10^6/uL (4.30-6.10); WHITE BLOOD COUNT 8.4 10^3/uL (4.0-10.0)
[2024-06-13 06:50] LABS: BLOOD UREA NITROGEN 23 MG/DL (9-23); CALCIUM LEVEL 9.4 MG/DL (8.3-10.6); CARBON DIOXIDE LEVEL 32 MMOL/L (20-31); CHLORIDE LEVEL 103 MMOL/L (98-107); GLOMERULAR FILTRATION RATE > 60.0 (>42); GLUCOSE, FASTING 118 MG/DL (74-106); MAGNESIUM LEVEL 2.2 MG/DL (1.8-2.4); POTASSIUM SERUM 4.3 MMOL/L (3.5-5.1); SODIUM LEVEL 141 MMOL/L (136-145)
[2024-06-13] MEDS ORDERED: SODIUM CHLORIDE 0.9% INJ 10 ML SYR IV SCH (09:00)
[2024-06-13] MEDS: FUROSEMIDE 20MG/2ML VIAL IV SCH (10:01)
[2024-06-13 15:58] LABS: APPEARANCE, BODY FLUID HAZY (CLEAR); PLEURAL FL COLOR PALE YELLOW (COLORLESS); SOURCE, BODY FLUID PLEURAL
[2024-06-13 16:00] LABS: PH BODY FLUID 7.722 UNITS (NOT ESTABLISHED); SOURCE, BODY FLUID pH PLEURAL
[2024-06-13 17:05] LABS: SOURCE, BODY FLUID ALBUMIN PLEURAL
[2024-06-13 17:09] LABS: SOURCE, BODY FLUID TRIG PLEURAL; TRIGLYCERIDE, BODY FLUID 15 MG/DL (NOT ESTABLISHED)
[2024-06-13 17:10] LABS: SOURCE, BODY FLUID GLUCOSE PLEURAL; SOURCE, BODY FLUID TOT PROTEIN PLEURAL; TOTAL PROTEIN, BODY FLUID < 2.0 G/DL (NOT ESTABLISHED)
[2024-06-13 17:11] LABS: AMYLASE, BODY FLUID < 20 U/L (NOT ESTABLISHED); LDH, BODY FLUID 62 U/L (NOT ESTABLISHED); SOURCE, BODY FLUID AMYLASE PLEURAL; SOURCE, BODY FLUID LDH PLEURAL
[2024-06-13 17:12] LABS: CHOLESTEROL, BODY FLUID 26 MG/DL (NOT ESTABLISHED); SOURCE, BODY FLUID CHOL PLEURAL
[2024-06-13] MEDS ORDERED: LASI40TA9 PO (17:19)
== END 2024-06-13 18:00 | disposition home or self-care (01) | DRG 291 ==
LOC: M ED 09:12 → M ED INP 14:54 → M PCU 15:34
PROVIDERS: ADMIT Student in an Organized Health Care Education/Training Program; ATTEND Student in an Organized Health Care Education/Training Program
PROC: 0W993ZZ Drainage of Right Pleural Cavity, Percutaneous Approach (ICD-10-PCS; principal; 2024-06-13 15:00)
DX: I11.0 Hypertensive heart disease with heart failure (principal); I50.33 Acute on chronic diastolic (congestive) heart failure; C83.30 Diffuse large B-cell lymphoma, unspecified site; J98.11 Atelectasis; J90 Pleural effusion, not elsewhere classified; I73.9 Peripheral vascular disease, unspecified; E78.5 Hyperlipidemia, unspecified; I48.0 Paroxysmal atrial fibrillation; I25.10 Atherosclerotic heart disease of native coronary artery without angina pectoris; Z87.891 Personal history of nicotine dependence; Z79.899 Other long term (current) drug therapy; Z79.82 Long term (current) use of aspirin

== ENCOUNTER 2024-06-19 17:13 | Inpatient (IN) | payer MEDICARE ==
[~2024-06-19] VITALS: Ht 177.8 cm; Wt 82.0 kg
[~2024-06-19 17:13] MED LIST changes: -CARV12.5 PO
[2024-06-19] MEDS ORDERED: SODIUM CHLORIDE 0.9% INJ 10 ML SYR IV PRN (19:35)
[2024-06-19 19:59] LABS: BASO # 0.1 10^3/uL (0.0-0.2); BASO % 0.8 % (0.0-1.0); EOS # 0.2 10^3/uL (0.0-0.5); EOS % 2.4 % (0.0-3.0); HEMATOCRIT 45.8 % (42.0-52.0); HEMOGLOBIN 14.8 g/dl (13.5-17.5); LYMPH # 1.1 10^3/uL (1.5-5.0); LYMPH % 11.6 % (24.0-44.0); MEAN CORPUSCULAR HEMOGLOBIN 28.3 pg (27.0-33.0); MEAN CORPUSCULAR HGB CONC 32.3 g/dl (32.0-36.5); MEAN CORPUSCULAR VOLUME 87.6 fl (80.0-96.0); MONO # 1.2 10^3/uL (0.0-0.8); MONO % 12.1 % (2.0-8.0); NEUTROPHILS # 7.1 10^3/uL (1.5-8.5); NEUTROPHILS % 72.8 % (36.0-66.0); PLATELET COUNT, AUTOMATED 349 10^3/uL (150-450); RED BLOOD COUNT 5.23 10^6/uL (4.30-6.10); WHITE BLOOD COUNT 9.7 10^3/uL (4.0-10.0)
[2024-06-19 20:16] LABS: INR 1.13; PARTIAL THROMBOPLASTIN TIME 30.7 SECONDS (24.8-34.2); PROTHROMBIN TIME 14.8 SECONDS (12.5-14.5)
[2024-06-19 20:34] LABS: CK-MB VALUE MASS 1.7 NG/ML (<3.6)
[2024-06-19 20:36] LABS: ALBUMIN 3.6 G/DL (3.2-5.2); ALKALINE PHOSPHATASE 97 U/L (40-129); ALT/SGPT 27 U/L (7.0-40); AST/SGOT 16 U/L (<34); BILIRUBIN,DIRECT 0.1 MG/DL (<0.4); BILIRUBIN,TOTAL 0.4 MG/DL (0.3-1.2); BLOOD UREA NITROGEN 31 MG/DL (9-23); CALCIUM LEVEL 9.5 MG/DL (8.3-10.6); CARBON DIOXIDE LEVEL 31 MMOL/L (20-31); CHLORIDE LEVEL 105 MMOL/L (98-107); DIGOXIN LEVEL 0.3 NG/ML (0.8-2.0); GLOMERULAR FILTRATION RATE > 60.0 (>42); GLUCOSE, FASTING 102 MG/DL (74-106); POTASSIUM SERUM 4.4 MMOL/L (3.5-5.1); SODIUM LEVEL 143 MMOL/L (136-145); TOTAL PROTEIN 5.9 G/DL (5.7-8.2)
[2024-06-19 20:37] LABS: THYROID STIMULATING HORMONE 5.996 uIU/ML (0.55-4.78)
[2024-06-19 20:38] LABS: FREE T4 1.17 NG/DL (0.89-1.76)
[2024-06-19 20:39] LABS: CPK CREATINE PHOSPHOKINASE 65 U/L (46-171); MB/CK RELATIVE INDEX 2.61 (< OR =4)
[2024-06-19] MEDS ORDERED: ISOVUE-370 76% 100ML VIAL As Ordered ONE (20:41)
[2024-06-19 21:24] LABS: CK-MB VALUE MASS 1.7 NG/ML (<3.6)
[2024-06-19 21:27] LABS: MB/CK RELATIVE INDEX 2.65 (< OR =4)
[2024-06-19] MEDS ORDERED: CARV12.5 PO (22:56)
[2024-06-19] MEDS ORDERED: HOME MED LIST COMPLETE! XX SCH (23:00)
[2024-06-19] MEDS: FUROSEMIDE 40MG/4ML VIAL IV ONE (23:05)
[2024-06-19] MEDS: CARVedilol 6.25 MG TAB PO ONE (23:51)
[2024-06-20] MEDS ORDERED: MOM 30ML SUSPENSION UDC PO PRN (03:00)
[2024-06-20] MEDS ORDERED: MAALOX 30 ML SUSP *UDC PO PRN (03:00)
[2024-06-20] MEDS ORDERED: ACETAMINOPHEN 325 MG TAB PO PRN (03:00)
[2024-06-20] MEDS ORDERED: PILL CUTTER 1 EACH XX PRN (03:40)
[2024-06-20 07:14] LABS: HEMATOCRIT 50.5 % (42.0-52.0); HEMOGLOBIN 16.6 g/dl (13.5-17.5); MEAN CORPUSCULAR HEMOGLOBIN 28.4 pg (27.0-33.0); MEAN CORPUSCULAR HGB CONC 32.9 g/dl (32.0-36.5); MEAN CORPUSCULAR VOLUME 86.3 fl (80.0-96.0); PLATELET COUNT, AUTOMATED 350 10^3/uL (150-450); RED BLOOD COUNT 5.85 10^6/uL (4.30-6.10); WHITE BLOOD COUNT 8.3 10^3/uL (4.0-10.0)
[2024-06-20 07:46] LABS: ALKALINE PHOSPHATASE 112 U/L (40-129); ALT/SGPT 30 U/L (7.0-40); AST/SGOT 17 U/L (<34); BILIRUBIN,TOTAL 0.6 MG/DL (0.3-1.2); BLOOD UREA NITROGEN 31 MG/DL (9-23); CALCIUM LEVEL 9.8 MG/DL (8.3-10.6); CARBON DIOXIDE LEVEL 29 MMOL/L (20-31); CHLORIDE LEVEL 104 MMOL/L (98-107); CREATININE FOR GFR 1.05 MG/DL (0.70-1.30); GLOMERULAR FILTRATION RATE > 60.0 (>42); GLUCOSE, FASTING 111 MG/DL (74-106); MAGNESIUM LEVEL 2.1 MG/DL (1.8-2.4); POTASSIUM SERUM 4.3 MMOL/L (3.5-5.1); SODIUM LEVEL 142 MMOL/L (136-145); TOTAL PROTEIN 6.4 G/DL (5.7-8.2)
[2024-06-20] MEDS: DOCUSATE SODIUM 100MG CAPSULE PO SCH (08:19)
[2024-06-20] MEDS: APIXABAN 5 MG TAB (ELIQUIS) PO SCH (08:19)
[2024-06-20] MEDS: CARVedilol 6.25 MG TAB PO SCH (08:19)
[2024-06-20] MEDS: ASPIRIN 81MG ENTERIC TABLET PO SCH (08:19)
[2024-06-20] MEDS: FUROSEMIDE 40MG/4ML VIAL IV SCH (08:20)
[2024-06-20] MEDS ORDERED: CARV12.5 PO (10:23)
[2024-06-20 11:13] VITALS: BP 106/70; TEMP 97.5; O2SAT 95
[2024-06-20] MEDS ORDERED: CARVedilol 6.25 MG TAB PO SCH (21:00)
[2024-06-23] MEDS ORDERED: ROSUVASTATIN 10 MG TAB (CRESTOR) PO SCH (09:00)
== END 2024-06-20 11:24 | disposition home or self-care (01) | DRG 291 ==
LOC: M ED 17:13 → M ED INP 23:35
PROVIDERS: ADMIT Student in an Organized Health Care Education/Training Program; ATTEND Student in an Organized Health Care Education/Training Program
DX: I11.0 Hypertensive heart disease with heart failure (principal); I50.33 Acute on chronic diastolic (congestive) heart failure; C83.30 Diffuse large B-cell lymphoma, unspecified site; J90 Pleural effusion, not elsewhere classified; I48.91 Unspecified atrial fibrillation; E78.5 Hyperlipidemia, unspecified; I73.9 Peripheral vascular disease, unspecified; Z87.891 Personal history of nicotine dependence; G47.30 Sleep apnea, unspecified; Z92.3 Personal history of irradiation; Z92.21 Personal history of antineoplastic chemotherapy; Z79.01 Long term (current) use of anticoagulants; Z79.82 Long term (current) use of aspirin; Z79.899 Other long term (current) drug therapy; Z95.828 Presence of other vascular implants and grafts

== ENCOUNTER → 2024-06-19 | Outpatient (CLI) | payer MEDICARE ==
[~2024-06-19] MED LIST changes: +CARV12.5 PO; +CARV6.25 PO; +LASI40TA9 PO; +LEVO1TAB39 PO; +ROSU5TAB49 PO
[2024-06-19 15:18] LABS: BASO # 0.1 10^3/uL (0.0-0.2); BASO % 0.9 % (0.0-1.0); EOS # 0.2 10^3/uL (0.0-0.5); EOS % 2.4 % (0.0-3.0); HEMATOCRIT 47.6 % (42.0-52.0); HEMOGLOBIN 15.8 g/dl (13.5-17.5); LYMPH # 1.2 10^3/uL (1.5-5.0); LYMPH % 12.9 % (24.0-44.0); MEAN CORPUSCULAR HEMOGLOBIN 28.7 pg (27.0-33.0); MEAN CORPUSCULAR HGB CONC 33.2 g/dl (32.0-36.5); MEAN CORPUSCULAR VOLUME 86.4 fl (80.0-96.0); MONO # 1.2 10^3/uL (0.0-0.8); MONO % 12.6 % (2.0-8.0); NEUTROPHILS # 6.5 10^3/uL (1.5-8.5); NEUTROPHILS % 70.8 % (36.0-66.0); PLATELET COUNT, AUTOMATED 382 10^3/uL (150-450); RED BLOOD COUNT 5.51 10^6/uL (4.30-6.10); WHITE BLOOD COUNT 9.2 10^3/uL (4.0-10.0)
[2024-06-19 15:39] LABS: BLOOD UREA NITROGEN 27 MG/DL (9-23); CALCIUM LEVEL 9.8 MG/DL (8.3-10.6); CARBON DIOXIDE LEVEL 28 MMOL/L (20-31); CHLORIDE LEVEL 103 MMOL/L (98-107); CREATININE FOR GFR 1.05 MG/DL (0.70-1.30); GLOMERULAR FILTRATION RATE > 60.0 (>42); GLUCOSE, FASTING 90 MG/DL (74-106); PHOSPHORUS LEVEL 4.7 MG/DL (2.4-5.1); POTASSIUM SERUM 4.4 MMOL/L (3.5-5.1); SODIUM LEVEL 142 MMOL/L (136-145)
== END ==
LOC: M LAB 14:33 → M RAD 14:33
PROVIDERS: ATTEND Registered Nurse
DX: R06.02 Shortness of breath (principal)

== ENCOUNTER → 2024-07-01 | Outpatient (CLI) | payer MEDICARE ==
[~2024-07-01] MED LIST changes: +CARV12.5 PO
== END ==
LOC: M PLARAD 10:46
PROVIDERS: ATTEND Internal Medicine Medical Oncology
DX: C83.31 Diffuse large B-cell lymphoma, lymph nodes of head, face, and neck (principal); J90 Pleural effusion, not elsewhere classified; R91.8 Other nonspecific abnormal finding of lung field
CPT/HCPCS: 78815; A9552

== ENCOUNTER 2024-07-14 02:25 | Inpatient (IN) | payer MEDICARE ==
[~2024-07-14] VITALS: Ht 175.3 cm; Wt 89.9 kg
[2024-07-14 03:12] LABS: VENOUS BASE EXCESS -0.8 (-2.0-2.0); VENOUS HCO3 27.8 MMOL/L (23.0-27.0); VENOUS O2 SATURATION 45.2 % (60.0-80.0); VENOUS PARTIAL PRESSURE CO2 62.6 mmHg (38.0-50.0); VENOUS PARTIAL PRESSURE O2 29.5 mmHg (30.0-50.0); VENOUS PH 7.265 UNITS (7.330-7.430); VENOUS STANDARD HCO3 22.5 MMOL/L; VENOUS TOTAL CO2 29.7 MMOL/L (24.0-28.0)
[2024-07-14 03:17] LABS: BASO % 0.2 % (0.0-1.0); EOS # 0.1 10^3/uL (0.0-0.5); EOS % 0.6 % (0.0-3.0); HEMATOCRIT 45.9 % (42.0-52.0); HEMOGLOBIN 14.6 g/dl (13.5-17.5); LYMPH # 0.6 10^3/uL (1.5-5.0); LYMPH % 3.9 % (24.0-44.0); MEAN CORPUSCULAR HEMOGLOBIN 28.7 pg (27.0-33.0); MEAN CORPUSCULAR HGB CONC 31.8 g/dl (32.0-36.5); MEAN CORPUSCULAR VOLUME 90.2 fl (80.0-96.0); MONO # 0.3 10^3/uL (0.0-0.8); MONO % 1.6 % (2.0-8.0); NEUTROPHILS # 15.3 10^3/uL (1.5-8.5); NEUTROPHILS % 93.1 % (36.0-66.0); PLATELET COUNT, AUTOMATED 273 10^3/uL (150-450); RED BLOOD COUNT 5.09 10^6/uL (4.30-6.10); WHITE BLOOD COUNT 16.4 10^3/uL (4.0-10.0)
[2024-07-14] MEDS ORDERED: IPRATROPIUM 0.5MG/ALBUTEROL 2.5MG INH SOL UD 3ML (DUONEB) As Ordered ONE (03:17)
[2024-07-14] MEDS: IPRATROPIUM 0.5MG/ALBUTEROL 2.5MG INH SOL UD 3ML (DUONEB) NEB ONE ×2 (03:32)
[2024-07-14 03:42] LABS: CK-MB VALUE MASS 6.6 NG/ML (<3.6)
[2024-07-14 03:44] LABS: ALBUMIN 3.6 G/DL (3.2-5.2); BILIRUBIN,DIRECT 0.3 MG/DL (<0.4); BILIRUBIN,TOTAL 0.8 MG/DL (0.3-1.2); CALCIUM LEVEL 8.8 MG/DL (8.3-10.6); CREATININE FOR GFR 1.31 MG/DL (0.70-1.30); GLOMERULAR FILTRATION RATE 56.9 (>42); POTASSIUM SERUM 4.4 MMOL/L (3.5-5.1); TOTAL PROTEIN 5.9 G/DL (5.7-8.2)
[2024-07-14] MEDS ORDERED: ISOVUE-370 76% 100ML VIAL As Ordered ONE (03:46)
[2024-07-14 03:57] LABS: MB/CK RELATIVE INDEX 4.48 (< OR =4)
[2024-07-14] MEDS: METOPROLOL 5 MG/5 ML VIAL IV SCH ×2 (04:00→06:30)
[2024-07-14] MEDS: METOPROLOL TART 25 MG TABLET PO ONE (04:35)
[2024-07-14 05:43] LABS: CK-MB VALUE MASS 6.1 NG/ML (<3.6)
[2024-07-14 05:49] LABS: MB/CK RELATIVE INDEX 4.76 (< OR =4)
[2024-07-14] MEDS: FUROSEMIDE 40MG/4ML VIAL IV ONE (07:25)
[2024-07-14 07:30] VITALS: BP 148/100; O2SAT 98
[2024-07-14 07:37] LABS: INR 1.25; PARTIAL THROMBOPLASTIN TIME 26.5 SECONDS (24.8-34.2)
[2024-07-14 08:00] VITALS: BP 139/101; TEMP 97.4; O2SAT 96
[2024-07-14] MEDS: ALPRAZolam 0.5 MG TAB PO ONE (08:00)
[2024-07-14] MEDS ORDERED: METOPROLOL 5 MG/5 ML VIAL IV SCH (08:30)
[2024-07-14] MEDS ORDERED: APIXABAN 5 MG TAB (ELIQUIS) PO SCH (09:00)
[2024-07-14] MEDS ORDERED: CARVedilol 12.5 MG TAB PO SCH ×2 (09:00→21:00)
[2024-07-14] MEDS: FLUCONAZOLE 100 MG TAB PO SCH (09:00)
[2024-07-14] MEDS ORDERED: ACYC1TAB PO (11:29)
[2024-07-14] MEDS ORDERED: ALPR0.25 PO (11:29)
[2024-07-14] MEDS ORDERED: SENO8.6T5 PO (11:29)
[2024-07-14] MEDS ORDERED: ALLO300T2 PO (11:29)
[2024-07-14] MEDS ORDERED: HOME MED LIST COMPLETE! XX SCH (11:30)
[2024-07-14 11:45] VITALS: BP 129/84; TEMP 97.8; O2SAT 93
[2024-07-14] MEDS: CARVedilol 12.5 MG TAB PO ONE (12:15)
[2024-07-14 12:24] LABS: PH BODY FLUID 7.551 UNITS (NOT ESTABLISHED); SOURCE, BODY FLUID pH PLEURAL
[2024-07-14 12:26] LABS: APPEARANCE, BODY FLUID HAZY (CLEAR); PLEURAL FL COLOR PALE YELLOW (COLORLESS); SOURCE, BODY FLUID PLEURAL
[2024-07-14] MEDS ORDERED: ALPRAZolam 0.25 MG TAB PO PRN (12:30)
[2024-07-14 12:45] LABS: SOURCE, BODY FLUID ALBUMIN PLEURAL
[2024-07-14 12:49] LABS: SOURCE, BODY FLUID GLUCOSE PLEURAL
[2024-07-14 12:50] LABS: SOURCE, BODY FLUID TOT PROTEIN PLEURAL; SOURCE, BODY FLUID TRIG PLEURAL; TOTAL PROTEIN, BODY FLUID < 2.0 G/DL (NOT ESTABLISHED); TRIGLYCERIDE, BODY FLUID 18 MG/DL (NOT ESTABLISHED)
[2024-07-14] MEDS ORDERED: IPRATROPIUM 0.5MG/ALBUTEROL 2.5MG INH SOL UD 3ML (DUONEB) NEB PRN (12:50)
[2024-07-14 12:51] LABS: AMYLASE, BODY FLUID < 20 U/L (NOT ESTABLISHED); LDH, BODY FLUID 56 U/L (NOT ESTABLISHED); SOURCE, BODY FLUID AMYLASE PLEURAL; SOURCE, BODY FLUID LDH PLEURAL
[2024-07-14 12:52] LABS: CHOLESTEROL, BODY FLUID < 25 MG/DL (NOT ESTABLISHED); SOURCE, BODY FLUID CHOL PLEURAL
[2024-07-14] MEDS: ROSUVASTATIN 10 MG TAB (CRESTOR) PO SCH (13:00)
[2024-07-14] MEDS: oxyCODONE 5MG TAB PO PRN ×2 (13:01→22:07)
[2024-07-14 14:00] VITALS: O2SAT 96
[2024-07-14 16:00] VITALS: BP 119/77; TEMP 98.8; O2SAT 96
[2024-07-14 16:26] LABS: PROCALCITONIN 0.17 ng/ml
[2024-07-14 20:00] VITALS: BP 105/53; TEMP 97.6; O2SAT 95
[2024-07-14] MEDS: APIXABAN 5 MG TAB (ELIQUIS) PO SCH (20:38)
[2024-07-14] MEDS: ACYCLOVIR 200 MG CAPSULE PO SCH (20:38)
[2024-07-14] MEDS: SENOKOT S TAB PO SCH (20:38)
[2024-07-14] MEDS: CARVedilol 12.5 MG TAB PO SCH (21:00)
[2024-07-14] MEDS: LevoFLOXacin 500 MG TABLET PO SCH (21:40)
[2024-07-15] VITALS (8 sets, daily range): BP systolic 110–139; BP diastolic 50–94; TEMP 96.9–98.2; O2SAT 94–98
[2024-07-15 06:36] LABS: HEMATOCRIT 37.4 % (42.0-52.0); MEAN CORPUSCULAR HEMOGLOBIN 28.9 pg (27.0-33.0); MEAN CORPUSCULAR HGB CONC 32.9 g/dl (32.0-36.5); MEAN CORPUSCULAR VOLUME 87.8 fl (80.0-96.0); PLATELET COUNT, AUTOMATED 196 10^3/uL (150-450); RED BLOOD COUNT 4.26 10^6/uL (4.30-6.10); WHITE BLOOD COUNT 11.1 10^3/uL (4.0-10.0)
[2024-07-15 06:41] LABS: HEMOGLOBIN 12.3 g/dl (13.5-17.5)
[2024-07-15 07:26] LABS: PROCALCITONIN 0.29 ng/ml
[2024-07-15 07:32] LABS: ALBUMIN 3.1 G/DL (3.2-5.2); CALCIUM LEVEL 7.9 MG/DL (8.3-10.6); CREATININE FOR GFR 1.28 MG/DL (0.70-1.30); GLOMERULAR FILTRATION RATE 58.5 (>42); POTASSIUM SERUM 3.9 MMOL/L (3.5-5.1); TOTAL PROTEIN 5.2 G/DL (5.7-8.2)
[2024-07-15] MEDS: FUROSEMIDE 40 MG TAB PO SCH (08:45)
[2024-07-15] MEDS: ASPIRIN 81MG ENTERIC TABLET PO SCH (08:45)
[2024-07-15] MEDS: allopurinoL 300 MG TAB PO SCH (08:46)
[2024-07-15] MEDS: POTASSIUM CHLORIDE 10MEQ SR TABLET PO ONE (09:20)
[2024-07-15] MEDS: FUROSEMIDE 40MG/4ML VIAL IV ONE (09:21)
[2024-07-15] MEDS ORDERED: FLUC-1 PO (09:54)
[2024-07-15] MEDS ORDERED: HOME MED LIST COMPLETE! XX SCH (09:55)
[2024-07-15] MEDS: METOPROLOL 5 MG/5 ML VIAL IV SCH (11:34)
[2024-07-15] MEDS: MOM 30ML SUSPENSION UDC PO ONE (11:40)
[2024-07-15] MEDS: DIGOXIN 0.25 MG TAB PO SCH (13:19)
[2024-07-15] MEDS: SENOKOT S TAB PO SCH (19:55)
[2024-07-15] MEDS: POTASSIUM CHLORIDE 10MEQ SR TABLET PO SCH (19:56)
[2024-07-16] VITALS (7 sets, daily range): BP systolic 92–154; BP diastolic 60–92; TEMP 96.5–97.5; O2SAT 92–97
[2024-07-16 05:05] LABS: BASO % 0.4 % (0.0-1.0); EOS # 0.1 10^3/uL (0.0-0.5); HEMATOCRIT 38.9 % (42.0-52.0); HEMOGLOBIN 12.8 g/dl (13.5-17.5); LYMPH # 0.4 10^3/uL (1.5-5.0); LYMPH % 5.4 % (24.0-44.0); MEAN CORPUSCULAR HEMOGLOBIN 28.7 pg (27.0-33.0); MEAN CORPUSCULAR HGB CONC 32.9 g/dl (32.0-36.5); MEAN CORPUSCULAR VOLUME 87.2 fl (80.0-96.0); MONO # 0.1 10^3/uL (0.0-0.8); MONO % 1.4 % (2.0-8.0); NEUTROPHILS # 7.3 10^3/uL (1.5-8.5); NEUTROPHILS % 90.7 % (36.0-66.0); PLATELET COUNT, AUTOMATED 188 10^3/uL (150-450); RED BLOOD COUNT 4.46 10^6/uL (4.30-6.10)
[2024-07-16 05:22] LABS: CREATININE FOR GFR 1.58 MG/DL (0.70-1.30); GLOMERULAR FILTRATION RATE 45.9 (>42); POTASSIUM SERUM 4.7 MMOL/L (3.5-5.1)
[2024-07-16] MEDS ORDERED: FUROSEMIDE 40MG/4ML VIAL IV SCH (09:00)
[2024-07-16] MEDS: FUROSEMIDE 40MG/4ML VIAL IV ONE (09:29)
[2024-07-16] MEDS: DIGOXIN INJ 0.5 MG/2 ML AMP IV SCH (09:29)
[2024-07-17 04:17] VITALS: BP 134/73; TEMP 97.2; O2SAT 93
[2024-07-17 05:00] LABS: BASO % 0.6 % (0.0-1.0); EOS % 0.3 % (0.0-3.0); HEMATOCRIT 41.3 % (42.0-52.0); HEMOGLOBIN 13.7 g/dl (13.5-17.5); LYMPH # 0.4 10^3/uL (1.5-5.0); LYMPH % 6.8 % (24.0-44.0); MEAN CORPUSCULAR HEMOGLOBIN 28.7 pg (27.0-33.0); MEAN CORPUSCULAR HGB CONC 33.2 g/dl (32.0-36.5); MEAN CORPUSCULAR VOLUME 86.4 fl (80.0-96.0); MONO # 0.1 10^3/uL (0.0-0.8); MONO % 1.3 % (2.0-8.0); NEUTROPHILS # 5.5 10^3/uL (1.5-8.5); NEUTROPHILS % 88.9 % (36.0-66.0); PLATELET COUNT, AUTOMATED 171 10^3/uL (150-450); RED BLOOD COUNT 4.78 10^6/uL (4.30-6.10); WHITE BLOOD COUNT 6.2 10^3/uL (4.0-10.0)
[2024-07-17 05:27] LABS: CALCIUM LEVEL 8.8 MG/DL (8.3-10.6); CREATININE FOR GFR 1.44 MG/DL (0.70-1.30); GLOMERULAR FILTRATION RATE 51.1 (>42); POTASSIUM SERUM 4.4 MMOL/L (3.5-5.1)
[2024-07-17 08:16] VITALS: BP 153/86; TEMP 97.2; O2SAT 96
[2024-07-17] MEDS: FUROSEMIDE 40MG/4ML VIAL IV ONE (09:21)
[2024-07-17] MEDS: DIGOXIN 0.25 MG TAB PO SCH (09:23)
[2024-07-17 09:24] VITALS: BP 153/86
[2024-07-17 12:31] VITALS: BP 127/68; TEMP 97.2; O2SAT 95
[2024-07-17] MEDS ORDERED: CORE25TA PO (13:31)
[2024-07-17] MEDS ORDERED: COLA100C5 PO (13:31)
[2024-07-17] MEDS ORDERED: DIGO0.123 PO (13:31)
[2024-07-18] MEDS ORDERED: FUROSEMIDE 40MG/4ML VIAL IV SCH (09:00)
== END 2024-07-17 15:25 | disposition home or self-care (01) | DRG 291 ==
LOC: M ED 02:25 → M ED INP 02:26 → OBSVTOIN 06:29 → M ICU 07:40
PROVIDERS: ADMIT Student in an Organized Health Care Education/Training Program; ATTEND Internal Medicine Nephrology
PROC: 0W9930Z Drainage of Right Pleural Cavity with Drainage Device, Percutaneous Approach (ICD-10-PCS; principal; 2024-07-14 10:00)
DX: I11.0 Hypertensive heart disease with heart failure (principal); J96.01 Acute respiratory failure with hypoxia; I50.33 Acute on chronic diastolic (congestive) heart failure; I24.89 Other forms of acute ischemic heart disease; J91.0 Malignant pleural effusion; J91.8 Pleural effusion in other conditions classified elsewhere; N17.9 Acute kidney failure, unspecified; C85.12 Unspecified B-cell lymphoma, intrathoracic lymph nodes; J98.11 Atelectasis; J70.0 Acute pulmonary manifestations due to radiation; I73.9 Peripheral vascular disease, unspecified; I48.91 Unspecified atrial fibrillation; E78.5 Hyperlipidemia, unspecified; K59.00 Constipation, unspecified; Z79.01 Long term (current) use of anticoagulants; Z79.82 Long term (current) use of aspirin; Z79.899 Other long term (current) drug therapy; Z95.820 Peripheral vascular angioplasty status with implants and grafts; Z87.891 Personal history of nicotine dependence; Z92.21 Personal history of antineoplastic chemotherapy; Z92.3 Personal history of irradiation

== ENCOUNTER → 2024-07-30 | Outpatient (CLI) | payer MEDICARE ==
[~2024-07-30] MED LIST changes: +ACYC1TAB PO; +ALPR0.25 PO; +COLA100C5 PO; +CORE25TA PO; +DIGO0.123 PO; +FLUC-1 PO; +SENO8.6T5 PO
== END ==
LOC: M RAD 10:45
PROVIDERS: ATTEND Internal Medicine Medical Oncology
DX: I50.9 Heart failure, unspecified (principal)

== ENCOUNTER → 2024-08-08 | Outpatient (CLI) | payer MEDICARE ==
[~2024-08-08] MED LIST changes: +MEGE400O7 PO; -MEGE40SU6 PO
== END ==
LOC: M CLY 11:21
PROVIDERS: ATTEND Nurse Practitioner Family
DX: R06.02 Shortness of breath (principal)

== ENCOUNTER → 2024-08-09 | Outpatient (CLI) | payer MEDICARE | LOC: M EKG 10:35 | PROVIDERS: ATTEND Registered Nurse | DX: I48.0 Paroxysmal atrial fibrillation (principal); I47.20 Ventricular tachycardia, unspecified ==

== ENCOUNTER → 2024-08-13 | Outpatient (CLI) | payer MEDICARE | LOC: M CARPUL 17:39 | PROVIDERS: ATTEND Internal Medicine Medical Oncology | DX: I50.9 Heart failure, unspecified (principal) ==

== ENCOUNTER 2024-09-17 18:33 | Emergency (ER) | payer MEDICARE ==
[~2024-09-17] VITALS: Ht 177.8 cm; Wt 82.1 kg
[2024-09-17 18:45] VITALS: BP 108/66; TEMP 96; O2SAT 98
[2024-09-17 22:23] VITALS: O2SAT 96
[2024-09-17] MEDS ORDERED: BENZ200C70 PO (23:22)
[2024-09-17] MEDS ORDERED: MUCI600T31 PO (23:22)
== END 2024-09-17 23:29 | disposition home or self-care (01) ==
LOC: M ED 18:33
DX: U07.1 COVID-19 (principal); I48.91 Unspecified atrial fibrillation; I10 Essential (primary) hypertension; C85.90 Non-Hodgkin lymphoma, unspecified, unspecified site; Z85.118 Personal history of other malignant neoplasm of bronchus and lung; Z87.891 Personal history of nicotine dependence; Z45.2 Encounter for adjustment and management of vascular access device; Z79.01 Long term (current) use of anticoagulants; Z79.82 Long term (current) use of aspirin; Z79.899 Other long term (current) drug therapy

== ENCOUNTER → 2024-10-30 | Outpatient (CLI) | payer MEDICARE ==
[~2024-10-30] MED LIST changes: +ACYC-438 PO; -ACYC1TAB PO; +BENZ200C70 PO; +MUCI600T31 PO; -PRED50TA PO; +PRED50TA57 PO
== END ==
LOC: M RAD 09:47
PROVIDERS: ATTEND Internal Medicine Medical Oncology
DX: C85.10 Unspecified B-cell lymphoma, unspecified site (principal); R74.01 Elevation of levels of liver transaminase levels

== ENCOUNTER → 2024-11-04 | Outpatient (CLI) | payer MEDICARE | LOC: M CLY 15:53 | PROVIDERS: ATTEND Family Medicine | DX: R06.02 Shortness of breath (principal); Z53.9 Procedure and treatment not carried out, unspecified reason ==

== ENCOUNTER → 2024-11-05 | Outpatient (REF) | payer MEDICARE ==
[2024-11-05 17:22] LABS: BASO # 0.1 10^3/uL (0.0-0.2); BASO % 0.5 % (0.0-1.0); EOS # 0.2 10^3/uL (0.0-0.5); EOS % 1.5 % (0.0-3.0); HEMATOCRIT 41.2 % (42.0-52.0); LYMPH # 1.6 10^3/uL (1.5-5.0); LYMPH % 14.1 % (24.0-44.0); MEAN CORPUSCULAR HEMOGLOBIN 28.1 pg (27.0-33.0); MEAN CORPUSCULAR HGB CONC 31.6 g/dl (32.0-36.5); MEAN CORPUSCULAR VOLUME 89.2 fl (80.0-96.0); MONO % 8.9 % (2.0-8.0); NEUTROPHILS # 8.3 10^3/uL (1.5-8.5); NEUTROPHILS % 74.3 % (36.0-66.0); PLATELET COUNT, AUTOMATED 422 10^3/uL (150-450); RED BLOOD COUNT 4.62 10^6/uL (4.30-6.10); WHITE BLOOD COUNT 11.2 10^3/uL (4.0-10.0)
[2024-11-05 17:47] LABS: BILIRUBIN,TOTAL 0.4 MG/DL (0.3-1.2); CALCIUM LEVEL 9.1 MG/DL (8.3-10.6); CREATININE FOR GFR 0.87 MG/DL (0.70-1.30); POTASSIUM SERUM 4.6 MMOL/L (3.5-5.1); TOTAL PROTEIN 5.8 G/DL (5.7-8.2)
== END ==
LOC: M SFHCCLAY 13:06
PROVIDERS: ATTEND Family Medicine
DX: I11.0 Hypertensive heart disease with heart failure (principal); R06.02 Shortness of breath; I50.30 Unspecified diastolic (congestive) heart failure

== ENCOUNTER 2024-12-26 17:38 | Inpatient (IN) | payer MEDICARE ==
[~2024-12-26] VITALS: Ht 177.8 cm; Wt 68.8 kg
[2024-12-26 20:02] LABS: VENOUS BASE EXCESS -1.2 (-2.0-2.0); VENOUS HCO3 24.4 MMOL/L (23.0-27.0); VENOUS O2 SATURATION 35.7 % (60.0-80.0); VENOUS PARTIAL PRESSURE CO2 44.5 mmHg (38.0-50.0); VENOUS PARTIAL PRESSURE O2 25.3 mmHg (30.0-50.0); VENOUS PH 7.357 UNITS (7.330-7.430); VENOUS STANDARD HCO3 22.3 MMOL/L; VENOUS TOTAL CO2 25.8 MMOL/L (24.0-28.0)
[2024-12-26] MEDS: DIGOXIN INJ 0.5 MG/2 ML AMP IV ONE (20:03)
[2024-12-26 20:14] LABS: BASO # 0.0 10^3/uL (0.0-0.2); BASO % 0.2 % (0.0-1.0); EOS # 0.0 10^3/uL (0.0-0.5); EOS % 0.2 % (0.0-3.0); LYMPH # 0.4 10^3/uL (1.5-5.0); LYMPH % 2.7 % (24.0-44.0); MONO # 0.5 10^3/uL (0.0-0.8); MONO % 3.4 % (2.0-8.0); NEUTROPHILS # 12.8 10^3/uL (1.5-8.5); NEUTROPHILS % 92.3 % (36.0-66.0); PLATELET COUNT, AUTOMATED 502 10^3/uL (150-450)
[2024-12-26 20:46] LABS: CK-MB VALUE MASS 1.3 NG/ML (<3.6)
[2024-12-26 20:47] LABS: ALT/SGPT 132 U/L (7.0-40); AST/SGOT 69 U/L (<34); CALCIUM LEVEL 8.9 MG/DL (8.3-10.6); CARBON DIOXIDE LEVEL 25 MMOL/L (20-31); CHLORIDE LEVEL 100 MMOL/L (98-107); CPK CREATINE PHOSPHOKINASE 28 U/L (46-171); CREATININE FOR GFR 0.85 MG/DL (0.70-1.30); GLOMERULAR FILTRATION RATE > 90.0 (>42); MB/CK RELATIVE INDEX 4.64 (< OR =4); POTASSIUM SERUM 4.3 MMOL/L (3.5-5.1); SODIUM LEVEL 136 MMOL/L (136-145)
[2024-12-26 20:50] LABS: FREE T4 1.01 NG/DL (0.89-1.76)
[2024-12-26] MEDS: NS 500 ML IV ONE (20:55)
[2024-12-26 22:10] LABS: CK-MB VALUE MASS 1.4 NG/ML (<3.6)
[2024-12-26 22:12] LABS: CPK CREATINE PHOSPHOKINASE 27.0 U/L (46-171); MB/CK RELATIVE INDEX 5.18 (< OR =4)
[2024-12-26 22:58] LABS: INR 2.83
[2024-12-26] MEDS ORDERED: ISOVUE-370 76% 100 ML VIAL As Ordered ONE (23:43)
[2024-12-27] MEDS: FUROSEMIDE 40 MG/4 ML VIAL IV ONE
[2024-12-27] MEDS ORDERED: ATEN25TA PO (00:42)
[2024-12-27] MEDS ORDERED: WARF-23 PO ×2 (00:42)
[2024-12-27] MEDS ORDERED: DIGO0.253 PO (00:42)
[2024-12-27] MEDS ORDERED: HOME MED LIST COMPLETE! XX SCH (00:45)
[2024-12-27] MEDS ORDERED: ALPRAZolam 0.25 MG TAB PO PRN (02:40)
[2024-12-27] MEDS: LR 1,000 ML IV SCH (03:01)
[2024-12-27] MEDS: PIPERACILLIN/TAZOBACTAM SOD 4.5 GM in DEXTROSE 5% (D5W) ADV/MINI-BAG 50 ML IV SCH (03:01)
[2024-12-27] MEDS: MIDODRINE 5 MG TAB PO ONE (03:05)
[2024-12-27 07:05] LABS: VENOUS BASE EXCESS -3.3 (-2.0-2.0); VENOUS HCO3 20.8 MMOL/L (23.0-27.0); VENOUS O2 SATURATION 96.6 % (60.0-80.0); VENOUS PARTIAL PRESSURE CO2 34.0 mmHg (38.0-50.0); VENOUS PARTIAL PRESSURE O2 97.4 mmHg (30.0-50.0); VENOUS PH 7.405 UNITS (7.330-7.430); VENOUS STANDARD HCO3 21.7 MMOL/L; VENOUS TOTAL CO2 21.9 MMOL/L (24.0-28.0)
[2024-12-27 07:08] LABS: PLATELET COUNT, AUTOMATED 413 10^3/uL (150-450)
[2024-12-27 07:21] LABS: INR 3.18
[2024-12-27 07:37] LABS: LDH LACTATE DEHYDROGENASE 217 U/L (120-246)
[2024-12-27 07:39] LABS: ALT/SGPT 135 U/L (7.0-40); AST/SGOT 58 U/L (<34); CALCIUM LEVEL 8.3 MG/DL (8.3-10.6); CARBON DIOXIDE LEVEL 22 MMOL/L (20-31); CHLORIDE LEVEL 100 MMOL/L (98-107); CREATININE FOR GFR 0.82 MG/DL (0.70-1.30); GLOMERULAR FILTRATION RATE > 90.0 (>42); POTASSIUM SERUM 4.3 MMOL/L (3.5-5.1); SODIUM LEVEL 134 MMOL/L (136-145)
[2024-12-27] MEDS: ASPIRIN 81 MG ENTERIC TABLET PO SCH (08:17)
[2024-12-27] MEDS: MIDODRINE 5 MG TAB PO SCH (08:17)
[2024-12-27] MEDS: ACYCLOVIR 200 MG CAPSULE PO SCH (08:18)
[2024-12-27] MEDS: DIGOXIN 0.25 MG TAB PO SCH (08:32)
[2024-12-27] MEDS ORDERED: DIGOXIN 0.25 MG TAB PO SCH (09:00)
[2024-12-27] MEDS ORDERED: DIGOXIN 0.125 MG TAB PO SCH (09:00)
[2024-12-27] MEDS ORDERED: FLUCONAZOLE 100 MG TAB PO SCH (09:00)
[2024-12-27] MEDS: DOXYCYCLINE HYCLATE 100 MG TABLET PO SCH (11:38)
[2024-12-27 17:14] VITALS: BP 123/60; TEMP 97.3; O2SAT 94
[2024-12-27] MEDS: CALCIUM CARBONATE 500 MG CHEW U/D PO PRN (18:29)
[2024-12-27] MEDS: PANTOPRAZOLE 40MG TAB PO SCH (18:29)
[2024-12-27 20:07] VITALS: BP 101/51; TEMP 98; O2SAT 91
[2024-12-27 23:36] VITALS: BP 108/51; TEMP 98.3; O2SAT 95
[2024-12-28] VITALS (9 sets, daily range): BP systolic 101–123; BP diastolic 53–82; TEMP 97–98.3; O2SAT 93–97
[2024-12-28] MEDS: DIGOXIN 0.125 MG TAB PO ONE (03:52)
[2024-12-28 05:18] LABS: PLATELET COUNT, AUTOMATED 499 10^3/uL (150-450)
[2024-12-28 05:27] LABS: INR 4.71
[2024-12-28 05:42] LABS: ALT/SGPT 184 U/L (7.0-40); AST/SGOT 68 U/L (<34); CALCIUM LEVEL 8.8 MG/DL (8.3-10.6); CARBON DIOXIDE LEVEL 23 MMOL/L (20-31); CHLORIDE LEVEL 99 MMOL/L (98-107); CREATININE FOR GFR 0.86 MG/DL (0.70-1.30); GLOMERULAR FILTRATION RATE > 90.0 (>42); POTASSIUM SERUM 4.6 MMOL/L (3.5-5.1); SODIUM LEVEL 137 MMOL/L (136-145)
[2024-12-28] MEDS: PHYTONADIONE 5 MG TAB PO ONE (08:26)
[2024-12-28] MEDS: DIGOXIN 0.25 MG TAB PO ONE (14:56)
[2024-12-29] VITALS (10 sets, daily range): BP systolic 100–120; BP diastolic 54–65; TEMP 97.6–98.6; O2SAT 90–97
[2024-12-29] MEDS: BIOFREEZE TOP PRN (05:36)
[2024-12-29 05:42] LABS: PLATELET COUNT, AUTOMATED 457 10^3/uL (150-450)
[2024-12-29 06:06] LABS: INR 2.39; LDH LACTATE DEHYDROGENASE 210.0 U/L (120-246)
[2024-12-29 06:14] LABS: ALT/SGPT 129.0 U/L (7.0-40); AST/SGOT 30.0 U/L (<34); CALCIUM LEVEL 8.4 MG/DL (8.3-10.6); CARBON DIOXIDE LEVEL 25.0 MMOL/L (20-31); CHLORIDE LEVEL 100.0 MMOL/L (98-107); CREATININE FOR GFR 0.95 MG/DL (0.70-1.30); GLOMERULAR FILTRATION RATE 83.5 (>42); POTASSIUM SERUM 4.1 MMOL/L (3.5-5.1); SODIUM LEVEL 138.0 MMOL/L (136-145)
[2024-12-29 08:01] LABS: MAGNESIUM LEVEL 1.6 MG/DL (1.8-2.4)
[2024-12-29] MEDS: MAG SULF 1GM/100ML (MAG RUN) 1 GM in IV 1 EA IV SCH (11:33)
[2024-12-29 14:24] LABS: APPEARANCE, BODY FLUID HAZY (CLEAR); PLEURAL FL COLOR YELLOW (COLORLESS); SOURCE, BODY FLUID PLEURAL
[2024-12-29 14:26] LABS: PH BODY FLUID 7.618 UNITS (NOT ESTABLISHED); SOURCE, BODY FLUID pH PLEURAL
[2024-12-29 14:36] LABS: SOURCE, BODY FLUID ALBUMIN PLEURAL
[2024-12-29 14:41] LABS: SOURCE, BODY FLUID GLUCOSE PLEURAL; SOURCE, BODY FLUID TOT PROTEIN PLEURAL; SOURCE, BODY FLUID TRIG PLEURAL; TRIGLYCERIDE, BODY FLUID 14.99999 MG/DL (NOT ESTABLISHED)
[2024-12-29 14:43] LABS: AMYLASE, BODY FLUID 27 U/L (NOT ESTABLISHED); CHOLESTEROL, BODY FLUID < 25 MG/DL (NOT ESTABLISHED); LDH, BODY FLUID 110 U/L (NOT ESTABLISHED); SOURCE, BODY FLUID AMYLASE PLEURAL; SOURCE, BODY FLUID CHOL PLEURAL; SOURCE, BODY FLUID LDH PLEURAL
[2024-12-29] MEDS: LIDOCAINE 5% PATCH TD ONE (21:10)
[2024-12-29] MEDS: ROSUVASTATIN 10 MG TAB PO SCH (21:11)
[2024-12-30] VITALS (8 sets, daily range): BP systolic 106–126; BP diastolic 55–61; TEMP 96.9–103.6; O2SAT 90–98
[2024-12-30 05:27] LABS: PLATELET COUNT, AUTOMATED 434 10^3/uL (150-450)
[2024-12-30 05:43] LABS: INR 2.11
[2024-12-30 05:46] LABS: ALT/SGPT 120.0 U/L (7.0-40); AST/SGOT 31.0 U/L (<34); CALCIUM LEVEL 8.0 MG/DL (8.3-10.6); CARBON DIOXIDE LEVEL 25.0 MMOL/L (20-31); CHLORIDE LEVEL 97.0 MMOL/L (98-107); CREATININE FOR GFR 0.91 MG/DL (0.70-1.30); GLOMERULAR FILTRATION RATE 87.9 (>42); POTASSIUM SERUM 3.6 MMOL/L (3.5-5.1); SODIUM LEVEL 134.0 MMOL/L (136-145)
[2024-12-30 07:39] LABS: MAGNESIUM LEVEL 1.9 MG/DL (1.8-2.4)
[2024-12-30] MEDS: MAGNESIUM OXIDE 400 MG TAB PO SCH (09:09)
[2024-12-30] MEDS ORDERED: DIGOXIN INJ 0.5 MG/2 ML AMP IV STA (18:13)
[2024-12-30] MEDS ORDERED: DIGOXIN INJ 0.5 MG/2 ML AMP IV PRN (18:25)
[2024-12-30] MEDS: WARFARIN SOD 5MG TAB PO SCH (18:52)
[2024-12-30] MEDS: LIDOCAINE 5% PATCH TD ONE (18:52)
[2024-12-30] MEDS: OMEPRAZOLE 20MG CAP PO ONE (18:52)
[2024-12-30] MEDS: ACETAMINOPHEN 325 MG TAB PO PRN (19:32)
[2024-12-30] MEDS: IBUPROFEN 800 MG TAB PO ONE (21:49)
[2024-12-31] VITALS (11 sets, daily range): BP systolic 90–165; BP diastolic 50–75; TEMP 95.2–103.3; O2SAT 91–99
[2024-12-31 05:32] LABS: PLATELET COUNT, AUTOMATED 403 10^3/uL (150-450)
[2024-12-31 05:49] LABS: INR 2.52
[2024-12-31 05:52] LABS: DIGOXIN LEVEL 1.1 NG/ML (0.8-2.0)
[2024-12-31 05:53] LABS: ALT/SGPT 94.0 U/L (7.0-40); AST/SGOT 23.0 U/L (<34); CALCIUM LEVEL 8.6 MG/DL (8.3-10.6); CARBON DIOXIDE LEVEL 29.0 MMOL/L (20-31); CHLORIDE LEVEL 97.0 MMOL/L (98-107); CREATININE FOR GFR 0.98 MG/DL (0.70-1.30); GLOMERULAR FILTRATION RATE 80.4 (>42); POTASSIUM SERUM 4.0 MMOL/L (3.5-5.1); SODIUM LEVEL 137.0 MMOL/L (136-145)
[2024-12-31] MEDS: LIDOCAINE 5% PATCH TD SCH (08:25)
[2024-12-31] MEDS: OMEPRAZOLE 20MG CAP PO SCH (08:28)
[2024-12-31] MEDS ORDERED: MAG SULF 1GM/100ML (MAG RUN) 1 GM in IV 1 EA IV SCH (10:00)
[2024-12-31] MEDS ORDERED: LEVALBUTEROL 1.25 MG 0.5ML CONCENTRATE NEB INH PRN (20:10)
[2025-01-01] VITALS (15 sets, daily range): BP systolic 102–155; BP diastolic 54–93; TEMP 96.8–100.3; O2SAT 88–99
[2025-01-01 05:15] LABS: CALCIUM LEVEL 7.8 MG/DL (8.3-10.6); CARBON DIOXIDE LEVEL 28 MMOL/L (20-31); CHLORIDE LEVEL 98 MMOL/L (98-107); CREATININE FOR GFR 0.82 MG/DL (0.70-1.30); GLOMERULAR FILTRATION RATE > 90.0 (>42); MAGNESIUM LEVEL 1.9 MG/DL (1.8-2.4); POTASSIUM SERUM 4.4 MMOL/L (3.5-5.1); SODIUM LEVEL 137 MMOL/L (136-145)
[2025-01-01 05:23] LABS: BASO # 0.0 10^3/uL (0.0-0.2); BASO % 0.2 % (0.0-1.0); EOS # 0.1 10^3/uL (0.0-0.5); EOS % 0.6 % (0.0-3.0); LYMPH # 0.3 10^3/uL (1.5-5.0); LYMPH % 3.0 % (24.0-44.0); MONO # 0.3 10^3/uL (0.0-0.8); MONO % 3.0 % (2.0-8.0); NEUTROPHILS # 10.1 10^3/uL (1.5-8.5); NEUTROPHILS % 92.0 % (36.0-66.0); PLATELET COUNT, AUTOMATED 457 10^3/uL (150-450)
[2025-01-01 05:45] LABS: INR 3.4
[2025-01-01] MEDS: MEROPENEM 2 GM in SODIUM CHLORIDE 0.9% INJ 100 ML IV SCH (11:24)
[2025-01-01] MEDS: PIPERACILLIN/TAZOBACTAM SOD 4.5 GM in DEXTROSE 5% (D5W) ADV/MINI-BAG 50 ML IV SCH (17:52)
[2025-01-01] MEDS: IMMUNE GLOBULIN 10% 30 GM in IV 1 EA IV ONE (20:00)
[2025-01-01] MEDS: AZITHROMYCIN 250 MG TABLET PO SCH (20:55)
[2025-01-02] VITALS (45 sets, daily range): BP systolic 99–176; BP diastolic 55–111; TEMP 96.1–100; O2SAT 90–100
[2025-01-02 04:52] LABS: BASO # 0.0 10^3/uL (0.0-0.2); BASO % 0.2 % (0.0-1.0); EOS # 0.1 10^3/uL (0.0-0.5); EOS % 1.1 % (0.0-3.0); LYMPH # 0.5 10^3/uL (1.5-5.0); LYMPH % 6.3 % (24.0-44.0); MONO # 0.4 10^3/uL (0.0-0.8); MONO % 4.9 % (2.0-8.0); NEUTROPHILS # 7.2 10^3/uL (1.5-8.5); NEUTROPHILS % 86.1 % (36.0-66.0); PLATELET COUNT, AUTOMATED 441 10^3/uL (150-450)
[2025-01-02 05:02] LABS: INR 2.49
[2025-01-02 05:11] LABS: CALCIUM LEVEL 8.5 MG/DL (8.3-10.6); CARBON DIOXIDE LEVEL 31 MMOL/L (20-31); CHLORIDE LEVEL 98 MMOL/L (98-107); CREATININE FOR GFR 0.80 MG/DL (0.70-1.30); GLOMERULAR FILTRATION RATE > 90.0 (>42); MAGNESIUM LEVEL 2.0 MG/DL (1.8-2.4); POTASSIUM SERUM 4.8 MMOL/L (3.5-5.1); SODIUM LEVEL 140 MMOL/L (136-145)
[2025-01-02] MEDS: ATOVAQUONE SUSP 750 MG/5 ML PO SCH (08:56)
[2025-01-02] MEDS ORDERED: IMMUNE GLOBULIN 10% 30 GM in IV 1 EA IV ONE (11:05)
[2025-01-02] MEDS ORDERED: ACETAMINOPHEN 325 MG TAB PO PRN (11:05)
[2025-01-02] MEDS: dexAMETHasone 4 MG/ML 1 ML VIAL IV PRN (11:20)
[2025-01-02] MEDS: diphenhydrAMINE 50 MG/ML VIAL IV PRN (11:21)
[2025-01-02] MEDS: IMMUNE GLOBULIN 10% 10 GM in IV 1 EA IV ONE (12:13)
[2025-01-02] MEDS: IMMUNE GLOBULIN 10% 20 GM in IV 1 EA IV ONE (13:44)
[2025-01-02] MEDS ORDERED: KETOROLAC 30 MG/ML 1 ML VIAL As Ordered ONE (14:04)
[2025-01-02] MEDS ORDERED: diphenhydrAMINE 50 MG/ML VIAL As Ordered ONE (14:05)
[2025-01-02] MEDS ORDERED: METOPROLOL 5 MG/5 ML VIAL As Ordered ONE (14:07)
[2025-01-02] MEDS: METOPROLOL 5 MG/5 ML VIAL IV PRN (14:09)
[2025-01-02] MEDS: diphenhydrAMINE 50 MG/ML VIAL IV STA (14:30)
[2025-01-02] MEDS: KETOROLAC 30 MG/ML 1 ML VIAL IV ONE (14:31)
[2025-01-02] MEDS ORDERED: WARFARIN SOD 5MG TAB PO SCH (17:00)
[2025-01-03] VITALS (10 sets, daily range): BP systolic 109–162; BP diastolic 58–70; TEMP 96.5–101.3; O2SAT 93–98
[2025-01-03 05:55] LABS: CALCIUM LEVEL 8.8 MG/DL (8.3-10.6); CARBON DIOXIDE LEVEL 28 MMOL/L (20-31); CHLORIDE LEVEL 100 MMOL/L (98-107); CREATININE FOR GFR 0.72 MG/DL (0.70-1.30); GLOMERULAR FILTRATION RATE > 90.0 (>42); MAGNESIUM LEVEL 2.2 MG/DL (1.8-2.4); POTASSIUM SERUM 4.8 MMOL/L (3.5-5.1); SODIUM LEVEL 140 MMOL/L (136-145)
[2025-01-03] MEDS: FUROSEMIDE 40 MG/4 ML VIAL IV SCH (08:53)
[2025-01-04] VITALS (9 sets, daily range): BP systolic 102–149; BP diastolic 56–75; TEMP 97–101.3; O2SAT 91–98
[2025-01-04 05:16] LABS: INR 2.27
[2025-01-04 05:28] LABS: CALCIUM LEVEL 8.3 MG/DL (8.3-10.6); CARBON DIOXIDE LEVEL 30 MMOL/L (20-31); CHLORIDE LEVEL 97 MMOL/L (98-107); CREATININE FOR GFR 0.81 MG/DL (0.70-1.30); GLOMERULAR FILTRATION RATE > 90.0 (>42); MAGNESIUM LEVEL 2.0 MG/DL (1.8-2.4); POTASSIUM SERUM 4.3 MMOL/L (3.5-5.1); SODIUM LEVEL 138 MMOL/L (136-145)
[2025-01-04] MEDS ORDERED: MIDODRINE 5 MG TAB PO PRN (09:00)
[2025-01-04] MEDS: METOPROLOL TART 25 MG TABLET PO SCH (09:45)
[2025-01-05] VITALS (9 sets, daily range): BP systolic 97–153; BP diastolic 53–76; TEMP 97–97.8; O2SAT 92–98
[2025-01-05 05:40] LABS: INR 1.76
[2025-01-05 06:01] LABS: CALCIUM LEVEL 9.3 MG/DL (8.3-10.6); CARBON DIOXIDE LEVEL 32 MMOL/L (20-31); CHLORIDE LEVEL 96 MMOL/L (98-107); CREATININE FOR GFR 0.85 MG/DL (0.70-1.30); GLOMERULAR FILTRATION RATE > 90.0 (>42); MAGNESIUM LEVEL 2.1 MG/DL (1.8-2.4); POTASSIUM SERUM 4.5 MMOL/L (3.5-5.1); SODIUM LEVEL 140 MMOL/L (136-145)
[2025-01-05 15:03] LABS: LYME TOTAL ANTIBODY CIA <= 0.90 Index (<=0.90)
[2025-01-06] VITALS: BP 145/70; TEMP 97.3; O2SAT 97
[2025-01-06 03:06] VITALS: BP 124/88; TEMP 98; O2SAT 95
[2025-01-06 04:00] VITALS: BP 124/88; TEMP 98; O2SAT 95
[2025-01-06 06:19] LABS: INR 1.48
[2025-01-06 06:22] LABS: CALCIUM LEVEL 9.4 MG/DL (8.3-10.6); CARBON DIOXIDE LEVEL 33 MMOL/L (20-31); CHLORIDE LEVEL 94 MMOL/L (98-107); CREATININE FOR GFR 0.85 MG/DL (0.70-1.30); GLOMERULAR FILTRATION RATE > 90.0 (>42); MAGNESIUM LEVEL 2.2 MG/DL (1.8-2.4); POTASSIUM SERUM 4.7 MMOL/L (3.5-5.1); SODIUM LEVEL 137 MMOL/L (136-145)
[2025-01-06 08:18] VITALS: BP 139/79; TEMP 97.1; O2SAT 100
[2025-01-06 08:35] VITALS: BP 139/79
[2025-01-06] MEDS: FUROSEMIDE 40 MG TAB PO SCH (08:35)
[2025-01-06] MEDS ORDERED: LIDOCAINE 1% MDV 20 ML VIAL As Ordered ONE (09:05)
[2025-01-06 10:14] LABS: BASO # 0.1 10^3/uL (0.0-0.2); BASO % 0.7 % (0.0-1.0); EOS # 0.2 10^3/uL (0.0-0.5); EOS % 1.6 % (0.0-3.0); LYMPH # 1.3 10^3/uL (1.5-5.0); LYMPH % 13.6 % (24.0-44.0); MONO # 0.9 10^3/uL (0.0-0.8); MONO % 9.2 % (2.0-8.0); NEUTROPHILS # 7.1 10^3/uL (1.5-8.5); NEUTROPHILS % 73.4 % (36.0-66.0); PLATELET COUNT, AUTOMATED 639 10^3/uL (150-450)
[2025-01-06 13:11] VITALS: BP 104/56; TEMP 96.8; O2SAT 99
[2025-01-06] MEDS ORDERED: ATOV5SUS PO (15:15)
[2025-01-06] MEDS ORDERED: AZIT-12 PO (15:15)
[2025-01-07 02:28] LABS: BORRELIA SPECIES DNA NOT DETECTED (NOT DETECT)
== END 2025-01-06 16:46 | disposition home or self-care (01) | DRG 871 ==
LOC: M ED 17:38 → M ED INP 12-27 02:38 → M PCU 12-27 17:05 → M ICU 12-31 04:35 → M PCU 01-02 16:16
PROVIDERS: ADMIT Student in an Organized Health Care Education/Training Program; ATTEND Family Medicine
PROC: 0W993ZZ Drainage of Right Pleural Cavity, Percutaneous Approach (ICD-10-PCS; principal; 2024-12-29 15:30)
PROC: 07DR3ZX Extraction of Iliac Bone Marrow, Percutaneous Approach, Diagnostic (ICD-10-PCS; 2025-01-06)
DX: A41.9 Sepsis, unspecified organism (principal); J18.9 Pneumonia, unspecified organism; C83.30 Diffuse large B-cell lymphoma, unspecified site; I50.32 Chronic diastolic (congestive) heart failure; C85.90 Non-Hodgkin lymphoma, unspecified, unspecified site; J91.0 Malignant pleural effusion; E87.1 Hypo-osmolality and hyponatremia; D80.1 Nonfamilial hypogammaglobulinemia; I87.1 Compression of vein; I11.0 Hypertensive heart disease with heart failure; I73.9 Peripheral vascular disease, unspecified; E78.5 Hyperlipidemia, unspecified; I95.9 Hypotension, unspecified; I48.0 Paroxysmal atrial fibrillation; R63.4 Abnormal weight loss; R74.01 Elevation of levels of liver transaminase levels; Z91.148 Patient's other noncompliance with medication regimen for other reason; Z92.3 Personal history of irradiation; Z92.21 Personal history of antineoplastic chemotherapy; I25.10 Atherosclerotic heart disease of native coronary artery without angina pectoris; F41.9 Anxiety disorder, unspecified; Z79.899 Other long term (current) drug therapy; Z79.82 Long term (current) use of aspirin; Z79.01 Long term (current) use of anticoagulants; Z88.8 Allergy status to other drugs, medicaments and biological substances; Z87.891 Personal history of nicotine dependence; E83.42 Hypomagnesemia; Z86.16 Personal history of COVID-19; T50.Z15A Adverse effect of immunoglobulin, initial encounter

== ENCOUNTER → 2025-04-23 | Outpatient (CLI) | payer MEDICARE ==
[~2025-04-23] MED LIST changes: +ATEN25TA PO; +ATOV5SUS PO; +AZIT-12 PO; +CEFD1CAP9 PO; +D-10TAB3 PO; +DIGO0.253 PO; +PRED20TA PO; +SENN-225 PO; -SENO8.6T5 PO
== END ==
LOC: M CLY 15:41
PROVIDERS: ATTEND Nurse Practitioner Family
DX: J18.9 Pneumonia, unspecified organism (principal)

== ENCOUNTER 2025-04-24 11:31 | Emergency (ER) | payer MEDICARE ==
[~2025-04-24] VITALS: Ht 177.8 cm; Wt 83.0 kg
[~2025-04-24 11:31] MED LIST changes: -CEFD1CAP9 PO; -D-10TAB3 PO; -PRED20TA PO
[2025-04-24] MEDS ORDERED: ISOVUE-370 76% 100 ML VIAL As Ordered ONE (12:15)
[2025-04-24 12:25] LABS: BASO # 0.1 10^3/uL (0.0-0.2); BASO % 0.7 % (0.0-1.0); EOS # 0.1 10^3/uL (0.0-0.5); EOS % 1.5 % (0.0-3.0); LYMPH # 0.6 10^3/uL (1.5-5.0); LYMPH % 7.2 % (24.0-44.0); MONO # 0.5 10^3/uL (0.0-0.8); MONO % 5.7 % (2.0-8.0); NEUTROPHILS # 7.5 10^3/uL (1.5-8.5); NEUTROPHILS % 84.5 % (36.0-66.0); PLATELET COUNT, AUTOMATED 285 10^3/uL (150-450)
[2025-04-24 12:51] LABS: CK-MB VALUE MASS 3.4 NG/ML (<3.6)
[2025-04-24 12:54] LABS: ALT/SGPT 42 U/L (7.0-40); AST/SGOT 30 U/L (<34); CALCIUM LEVEL 9.0 MG/DL (8.3-10.6); CARBON DIOXIDE LEVEL 29 MMOL/L (20-31); CHLORIDE LEVEL 104 MMOL/L (98-107); CREATININE FOR GFR 1.22 MG/DL (0.70-1.30); DIGOXIN LEVEL 1.2 NG/ML (0.8-2.0); GLOMERULAR FILTRATION RATE 61.8 (>42); POTASSIUM SERUM 4.6 MMOL/L (3.5-5.1); SODIUM LEVEL 144 MMOL/L (136-145)
[2025-04-24 13:06] LABS: CPK CREATINE PHOSPHOKINASE 73 U/L (46-171); MB/CK RELATIVE INDEX 4.65 (< OR =4)
[2025-04-24 13:38] LABS: INR 1.47
[2025-04-24 13:50] VITALS: O2SAT 97
[2025-04-24 13:53] LABS: CPK CREATINE PHOSPHOKINASE 57.0 U/L (46-171)
[2025-04-24 13:54] LABS: CK-MB VALUE MASS 3.5 NG/ML (<3.6); MB/CK RELATIVE INDEX 6.14 (< OR =4)
[2025-04-24] MEDS ORDERED: CEFD1CAP9 PO (14:09)
[2025-04-24] MEDS ORDERED: D-10TAB3 PO (14:09)
[2025-04-24] MEDS ORDERED: PRED20TA PO (14:09)
[2025-04-24] MEDS ORDERED: AZIT-12 PO (14:09)
[2025-04-24] MEDS ORDERED: HOME MED LIST COMPLETE! XX SCH (14:10)
[2025-04-24 14:45] VITALS: BP 168/97; TEMP 98.3; O2SAT 95
== END 2025-04-24 14:58 | disposition home or self-care (01) ==
LOC: M ED 11:31
DX: R91.8 Other nonspecific abnormal finding of lung field (principal); B34.8 Other viral infections of unspecified site; I48.91 Unspecified atrial fibrillation; I10 Essential (primary) hypertension; C83.30 Diffuse large B-cell lymphoma, unspecified site; Z87.891 Personal history of nicotine dependence; Z79.82 Long term (current) use of aspirin; Z79.01 Long term (current) use of anticoagulants; Z79.899 Other long term (current) drug therapy; Z88.8 Allergy status to other drugs, medicaments and biological substances
CPT/HCPCS: 71275; 80047; 80048; 80076; 80162; 82550; 82553; 83880; 84443; 84484; 85025; 85610; 85730; 87040; 87486; 87581; 87633; 87798; 93005; 93041; 94760; 99285; Q9967

== ENCOUNTER → 2025-05-04 | Outpatient (CLI) | payer MEDICARE ==
[~2025-05-04] MED LIST changes: +CEFD1CAP9 PO; +D-10TAB3 PO; +PRED20TA PO
[2025-05-04 11:55] VITALS: BP 123/79; TEMP 97.5; O2SAT 97
== END ==
LOC: M IRPRO 11:39
PROVIDERS: ATTEND Internal Medicine Pulmonary Disease
DX: J90 Pleural effusion, not elsewhere classified (principal)

== ENCOUNTER 2025-05-08 13:56 | Emergency (ER) | payer MEDICARE ==
[~2025-05-08] VITALS: Ht 177.8 cm; Wt 82.5 kg
[2025-05-08 18:27] VITALS: O2SAT 93
[2025-05-08] MEDS: ACETAMINOPHEN 325 MG TAB PO ONE (18:33)
[2025-05-08] MEDS: DOXYCYCLINE HYCLATE 100 MG TABLET PO ONE (18:33)
[2025-05-08 19:04] LABS: BASO # 0.0 10^3/uL (0.0-0.2); BASO % 0.2 % (0.0-1.0); EOS # 0.0 10^3/uL (0.0-0.5); EOS % 0.2 % (0.0-3.0); LYMPH # 0.5 10^3/uL (1.5-5.0); LYMPH % 2.9 % (24.0-44.0); MONO # 0.8 10^3/uL (0.0-0.8); MONO % 4.9 % (2.0-8.0); NEUTROPHILS # 14.8 10^3/uL (1.5-8.5); NEUTROPHILS % 90.9 % (36.0-66.0); PLATELET COUNT, AUTOMATED 276 10^3/uL (150-450)
[2025-05-08 19:08] LABS: CALCIUM LEVEL 9.3 MG/DL (8.3-10.6); CARBON DIOXIDE LEVEL 25.0 MMOL/L (20-31); CHLORIDE LEVEL 103.0 MMOL/L (98-107); CREATININE FOR GFR 1.07 MG/DL (0.70-1.30); GLOMERULAR FILTRATION RATE 72.4 (>42); POTASSIUM SERUM 4.1 MMOL/L (3.5-5.1); SODIUM LEVEL 136.0 MMOL/L (136-145)
[2025-05-08 19:42] LABS: INR 1.37
[2025-05-08 19:48] VITALS: BP 150/93; TEMP 98.9; O2SAT 91
[2025-05-08] MEDS ORDERED: DOXY-441 PO (19:52)
== END 2025-05-08 19:58 | disposition home or self-care (01) ==
LOC: M ED 13:56
DX: J18.9 Pneumonia, unspecified organism (principal); D72.829 Elevated white blood cell count, unspecified; I48.91 Unspecified atrial fibrillation; Z85.118 Personal history of other malignant neoplasm of bronchus and lung; Z79.82 Long term (current) use of aspirin; Z79.01 Long term (current) use of anticoagulants; Z79.899 Other long term (current) drug therapy; Z88.8 Allergy status to other drugs, medicaments and biological substances

== ENCOUNTER → 2025-05-22 | Outpatient (REF) | payer MEDICARE ==
[~2025-05-22] MED LIST changes: +DOXY-441 PO
== END ==
LOC: M SFHCCLAY 13:46
PROVIDERS: ATTEND Physician Assistant
DX: R05.1 Acute cough (principal)
CPT/HCPCS: 87486; 87581; 87633; 87798; G0463